=== PATIENT | male | born 1940 | race American Indian/Alaskan Native ===

== ENCOUNTER 2019-03-30 05:57 | Observation (INO) | payer OTHER ==
--- NOTE | 2019-03-26 10:54 | Anesthesia Consultation ---
Anesthesia Consult and Med Hx Date of service: 03/30/19 - Airway Anesthetic Teeth Evaluation: Good ROM Head & Neck: Adequate Mental/Hyoid Distance: Adequate Mallampati Class: Class III Intubation Access Assessment: Possibly Difficult - Pulmonary Exam CTA: Yes - Cardiac Exam Cardiac Exam: RRR - Pre-Operative Health Status ASA Pre-Surgery Classification: ASA3 Proposed Anesthetic Plan: General - Pulmonary Hx Smoking: No Hx Respiratory Symptoms: No Hx Sleep Apnea: No (JUAN JOSE PRE SCREEN HIGH RISK) - Cardiovascular System Hx Hypertension: Yes Hx Heart Attack/AMI: No (EF 35-40% on most recent TTE) Hx Percutaneous Transluminal Coronary Angioplasty (PTCA): No Hx Cardia Arrhythmia: Yes (afib, complete heart block) Hx Pacemaker: Yes - Central Nervous System CVA: No - Gastrointestinal Hx Gastroesophageal Reflux Disease: No - Endocrine Hx Renal Disease: No Hx Liver Disease: No Hx Insulin Dependent Diabetes: No Hx Non-Insulin Dependent Diabetes: No Hx Thyroid Disease: No - Hematic Hx Anemia: Yes - Other Systems Hx Obesity: No - Additional Comments Anesthesia Medical History Comments: No hx anesthetic complications. Cardiac clearance on chart. Per figure model, OK to hold xarelto 4-7 days preop.
[2019-03-26 11:03] LABS: Basophils % (Auto) 0.3 % (0.0-1.8); Eosinophils # (Auto) 0.1 K/mm3 (0.0-0.4); Hematocrit 29.6 % (35.5-45.6); Hemoglobin 9.5 gm/dl (11.8-15.2); Lymphocytes # (Auto) 2.1 K/mm3 (1.2-5.4); Lymphocytes % (Auto) 48.4 % (13.4-35.0); Mean Corpuscular HGB Conc 32 % (32-34); Mean Corpuscular Volume 73 fl (84-94); Monocytes # (Auto) 0.4 K/mm3 (0.0-0.8); Monocytes % (Auto) 8.4 % (0.0-7.3); Platelet Count 307 K/mm3 (140-440); Red Blood Count 4.06 M/mm3 (3.65-5.03); Red Cell Distribution Width 19.7 % (13.2-15.2)
[2019-03-26 11:14] LABS: Alanine Aminotransferase 36 units/L (7-56); Albumin 4.1 g/dL (3.9-5); BUN/Creatinine Ratio 16; Blood Urea Nitrogen 13 mg/dL (9-20); Calcium 11.3 mg/dL (8.4-10.2); Hemolysis Index 1
[~2019-03-30 05:57] MED LIST: ceFAZolin/STERILE WATER 2 GM/20 ML SYRINGE IV NR
[2019-03-30] MEDS ORDERED: ACETAMINOPHEN 325 MG TAB PO NR (07:09)
[2019-03-30] MEDS ORDERED: fentaNYL 100 MCG/2 ML INJ IV PRN (07:09)
[2019-03-30] MEDS ORDERED: ONDANSETRON 4 MG/2 ML INJ IV PRN ×2 (07:09→09:38)
--- NOTE | 2019-03-30 07:10 | Anesthesia Day of Surgery ---
Anesthesia Day of Surgery - Day of Surgery Patient Examined: Yes Patient H&P Reviewed: Yes Patient is NPO: Yes Beta Blockers: Yes
[2019-03-30 07:12] LABS: INR 1.01 (0.87-1.13); Partial Thromboplastin Time 34.9 Sec. (24.2-36.6)
[2019-03-30] MEDS ORDERED: LIDOCAINE MPF (2%) 20 MG/1 ML VIAL 5 ML ONE (07:25)
[2019-03-30] MEDS ORDERED: PROPOFOL 200 MG/20 ML VIAL IV ONE (07:25)
[2019-03-30] MEDS ORDERED: fentaNYL 100 MCG/2 ML INJ ONE (07:25)
[2019-03-30] MEDS: LACTATED RINGERS 1,000 ML IV SCH ×3 (07:30→22:15)
[2019-03-30] MEDS ORDERED: WATER FOR IRRIG STERILE 2000 ML IR ONE (07:50)
[2019-03-30] MEDS ORDERED: SODIUM CHLORIDE 0.9% IRRIG SOLN 3000 ML IR ONE (07:52)
[2019-03-30] MEDS ORDERED: WATER FOR IRRIG STERILE 1,500 ML BOTTLE IR ONE (07:53)
[2019-03-30] MEDS ORDERED: ETOMIDATE 20 MG/10 ML INJ IV ONE (09:16)
[2019-03-30] MEDS ORDERED: ONDANSETRON 4 MG/2 ML INJ ONE (09:17)
[2019-03-30] MEDS ORDERED: LACTATED RINGERS 1,000 ML ONE (09:31)
[2019-03-30] MEDS ORDERED: SODIUM CHLORIDE IRRI 1000 ML 1,000 ML IR ONE ×3 (09:37→17:38)
[2019-03-30] MEDS ORDERED: MORPHINE 2 MG/1 ML INJ IV PRN (09:38)
[2019-03-30] MEDS ORDERED: ZOLPIDEM 5 MG TAB PO PRN (09:38)
[2019-03-30] MEDS ORDERED: NALOXONE 0.4 MG/1 ML INJ IV PRN (09:38)
--- NOTE | 2019-03-30 09:38 | Short Stay Summary ---
Short Stay Documentation Date of service: 03/30/19 - History H&P: obtained from office - Allergies and Medications Current Medications: Allergies No Known Allergies Allergy (Verified 03/24/19 14:19) Home Medications Medication Instructions Recorded Confirmed Last Taken Type AtorvaSTATin [Lipitor] 40 mg PO QHS 03/24/19 03/24/19 03/29/19 19:00 History Ferrous Sulfate [Iron 325 MG] 325 mg PO DAILY 03/24/19 03/24/19 03/29/19 19:00 History Losartan [Cozaar] 50 mg PO QDAY 03/24/19 03/30/19 03/30/19 04:00 History NIFEdipine [Nifedipine ER] 30 mg PO DAILY 03/24/19 03/30/19 03/30/19 04:00 History Rivaroxaban [Xarelto] 10 mg PO QDAY 03/24/19 03/30/19 03/23/19 10:00 History Tamsulosin [Flomax] 0.4 mg PO QDAY 03/24/19 03/24/19 03/29/19 19:00 History carvediloL [Coreg] 6.25 mg PO BID 03/24/19 03/30/19 03/30/19 04:00 History hydroCHLOROthiazide [Hctz] 12.5 mg PO QDAY 03/24/19 03/24/19 03/29/19 19:00 History metFORMIN [Glucophage] 850 mg PO BID 03/24/19 03/24/19 03/29/19 19:00 History Active Medications Acetaminophen (Tylenol) 650 mg PO ONCE NR Stop: 03/30/19 13:00 Last Admin: 03/30/19 07:20 Dose: 650 mg Documented by: Cefazolin Sodium (Ancef/Sterile Water 2 Gm/20 Ml) 2 gm IV PREOP NR Stop: 03/30/19 23:59 Fentanyl (Sublimaze) 50 mcg IV Q5MIN PRN PRN Reason: Pain , Severe (7-10) Stop: 03/30/19 20:00 Lactated Ringer's (Lactated Ringers) 1,000 mls @ 100 mls/hr IV DIRECT AKIRA Last Admin: 03/30/19 07:30 Dose: 100 mls/hr Documented by: Ondansetron HCl (Zofran) 4 mg IV ONCE PRN PRN Reason: Nausea And Vomiting Stop: 03/30/19 13:00 - Brief post op/procedure progress note Date of procedure: 03/30/19 Pre-op diagnosis: retention, bph Post-op diagnosis: same Procedure: cysto, TURP, spt Anesthesia: TROYA Surgeon: SANDI NGUYEN Estimated blood loss: 50-100ml Pathology: list (prostate chips) Specimen disposition: to lab Condition: stable - Hospital course Hospital course: brady & timothy on chart temp this am----trending down CXR no actue findnigs verdugo pink tinged home with verdugo & spt clamped - Disposition Condition at discharge: Stable Short Stay Discharge Plan Follow up with: TRIXIE CHEEMA MD [Primary Care Provider] - 7 Days
--- NOTE | 2019-03-30 09:48 | Fluoroscopy Report ---
3 fluoroscopic images submitted Indication: Intraoperative localization Impression: 3 images of the abdomen were submitted for documentation purposes with radiology involve ment. Left-sided retrograde pyelogram was performed using 12 mL of Omnipaque 300. Please refer to th e operative note for complete details. Fluoroscopic time: 13 seconds Signer Name: Miah Santiago MD Signed: 03/30/2019 9:44 AM Workstation Name: [id number]
[2019-03-30] MEDS ORDERED: NON-FORMULARY EACH (Nifedipine [Nifedipine Er] 30 MG) PO SCH (10:00)
[2019-03-30] MEDS ORDERED: SODIUM CHLORIDE 0.9% 1000 ML 1,000 ML IV SCH (10:00)
--- NOTE | 2019-03-30 10:22 | Operative Report ---
PREOPERATIVE DIAGNOSIS: Urinary retention. POSTOPERATIVE DIAGNOSIS: Urinary retention. PROCEDURE: Cystoscopy, left retrograde pyelogram, transurethral resection of the prostate, suprapubic catheter placement. SURGEON: Flako Kaminski MD ANESTHESIA: General. ESTIMATED BLOOD LOSS: Minimal. FLUIDS: Crystalloid. COMPLICATIONS: No complications. INDICATIONS: This patient is a 78-year-old gentleman who was referred from the Emergency Room. The patient went into urinary retention and a Delacruz catheter placed in November. He was seen in the office for evaluation. Urodynamic testing was consistent with muscle weakness and obstruction. Bladder capacity 380 mL; however, he was unable to void. Delacruz catheter was replaced. We discussed options with the patient and his daughter regarding continuing Delacruz catheter, changing it regularly, clean intermittent catheterization versus TURP. We reviewed options and they agreed to proceed with surgical intervention. DESCRIPTION OF PROCEDURE: The patient was taken to the operative suite, placed in a supine position. After adequate general anesthesia, placed in dorsal lithotomy position, prepped and draped in a sterile fashion. Pancystourethroscopy was performed with a 22-Spanish Storz cystoscope, no urethral abnormalities. The patient's prostate revealed significant trilobar obstruction with a large median lobe. Bladder, no tumors or stones. Left ureteral orifice could be appreciated. The right could not due to enlarged median lobe and trabeculation. Left retrograde pyelogram was obtained with an 8-Spanish Addison catheter and 8 mL of contrast. No filling defects or obstruction; however, he had significant J hooking of the distal ureter. Next, using a 24-Spanish resectoscope with a standard settings of 200 cut and 120 coag, transurethral resection of the prostate was performed in a systematic fashion, taken down the median lobe and the right and left lateral lobes respectively. The chips were evacuated out with the Apsmart evacuator prior to performing the TURP, using a curved [place] a small incision was made in the suprapubic area, 1 cm cephalad to the pubic symphysis, an 18-Spanish [place] tip catheter was used. A 2-0 silk was attached to the [place], the catheter was pulled from the suprapubic area to the tip of the meatus, stitch was cut, catheter was followed back into the bladder and 10 mL of sterile water placed in the balloon, could be visualized without difficulties. A 2-0 silk was used to secure it at the skin area and it will be clamped as a backup. We completed the TURP, chips were evacuated out with the Apsmart evacuator. Adequate hemostasis achieved. A 22-Spanish 3-way catheter was placed to a Raygoza's drip, irrigated clear, 30 mL was placed in the balloon. Rectal exam was benign. He was extubated and taken to recovery room. He will be observed overnight and go home on Bactrim and Tyro. He was cleared from a cardiac standpoint from Dr. Aguilar Allen. JOB# [id number] [facility]/NTS
[2019-03-30] MEDS ORDERED: SODIUM CHLORIDE IRRI 2000 ML 4,000 ML ONE (10:47)
[2019-03-30] MEDS: FERROUS SULFATE 325 MG TAB PO SCH (12:02)
[2019-03-30] MEDS: hydroCHLOROthiazide 12.5 MG CAP PO SCH (12:02)
[2019-03-30] MEDS: carvediloL 6.25 MG TAB PO SCH ×2 (12:52→22:07)
[2019-03-30] MEDS: LOSARTAN 50 MG TAB PO SCH (12:53)
[2019-03-30] MEDS: NIFEdipine XL 30 MG TAB PO SCH (13:01)
[2019-03-30] MEDS: HYDROcodone/ACETAMINOPHEN 5-325 MG TAB PO PRN ×2 (16:13→22:06)
[2019-03-30] MEDS: metFORMIN 850 MG TAB PO SCH (17:05)
--- NOTE | 2019-03-30 18:08 | Post Anesthesia Evaluation ---
- Post Anesthesia Evaluation Patient Participated: Yes Airway Patent: Yes Stable Respiratory Function: Yes Nausea/Vomiting: No Temp > 96.8F: Yes Pain Manageable: Yes Adequeate Hydration: Yes Anesthesia Complications: No Block Receding Appropriately: Not Applicable Patient on Ventilator: No
[2019-03-30] MEDS: SODIUM CHLORIDE 0.9% IRRIG SOLN 2000 ML IR SCH ×2 (22:18→22:19)
[2019-03-31] MEDS: SODIUM CHLORIDE 0.9% IRRIG SOLN 2000 ML IR SCH ×11 (00:46→14:58)
--- NOTE | 2019-03-31 01:02 | Consultation ---
History of Present Illness - Reason for Consult Consult date: 03/30/19 Medical management Requesting physician: SANDI NGUYEN - History of Present Illness S/p cysto, TURP, spt Post op doing well. No SOB,CP. Past History Past Medical History: anemia, diabetes, hypertension, hyperlipidemia, other (BPH,Anticoagulation,Anemia) Past Surgical History: TURP Social history: lives with family, full code Family history: hypertension Medications and Allergies Allergies Allergy/AdvReac Type Severity Reaction Status Date / Time No Known Allergies Allergy Verified 03/24/19 14:19 Home Medications Medication Instructions Recorded Confirmed Last Taken Type AtorvaSTATin [Lipitor] 40 mg PO QHS 03/24/19 03/24/19 03/29/19 19:00 History Ferrous Sulfate [Iron 325 MG] 325 mg PO DAILY 03/24/19 03/24/19 03/29/19 19:00 History Losartan [Cozaar] 50 mg PO QDAY 03/24/19 03/30/19 03/30/19 04:00 History NIFEdipine [Nifedipine ER] 30 mg PO DAILY 03/24/19 03/30/19 03/30/19 04:00 History Rivaroxaban [Xarelto] 10 mg PO QDAY 03/24/19 03/30/19 03/23/19 10:00 History Tamsulosin [Flomax] 0.4 mg PO QDAY 03/24/19 03/24/19 03/29/19 19:00 History carvediloL [Coreg] 6.25 mg PO BID 03/24/19 03/30/19 03/30/19 04:00 History hydroCHLOROthiazide [Hctz] 12.5 mg PO QDAY 03/24/19 03/24/19 03/29/19 19:00 History metFORMIN [Glucophage] 850 mg PO BID 03/24/19 03/24/19 03/29/19 19:00 History Active Meds: Active Medications Acetaminophen/Hydrocodone Bitart ([place] 5/325) 2 each PO Q4H PRN PRN Reason: Pain, Moderate (4-6) Last Admin: 03/30/19 22:06 Dose: 2 each Documented by: Atorvastatin Calcium (Lipitor) 40 mg PO QHS [facility] Last Admin: 03/30/19 22:07 Dose: 40 mg Documented by: Carvedilol (Coreg) 6.25 mg PO BID [facility] Last Admin: 03/30/19 22:07 Dose: 6.25 mg Documented by: Ferrous Sulfate (Feosol) 325 mg PO DAILY [facility] Last Admin: 03/30/19 12:02 Dose: 325 mg Documented by: Hydrochlorothiazide (Hctz) 12.5 mg PO QDAY [facility] Last Admin: 03/30/19 12:02 Dose: 12.5 mg Documented by: Lactated Ringer's (Lactated Ringers) 1,000 mls @ 100 mls/hr IV DIRECT AKIRA Last Admin: 03/30/19 22:15 Dose: 100 mls/hr Documented by: Sodium Chloride (Nacl 0.9% 1000 Ml) 1,000 mls @ 100 mls/hr IV DIRECT AKIRA Levofloxacin/Dextrose (Levaquin 250mg/50ml) 250 mg in 50 mls @ 50 mls/hr IV Q24HR [facility]; Protocol Last Admin: 03/30/19 13:45 Dose: 50 mls/hr Documented by: Losartan Potassium (Cozaar) 50 mg PO QDAY [facility] Last Admin: 03/30/19 12:53 Dose: Not Given Documented by: Metformin HCl (Glucophage) 850 mg PO BIDDIAB [facility] Last Admin: 03/30/19 17:05 Dose: 850 mg Documented by: Morphine Sulfate (Morphine) 2 mg IV Q4H PRN PRN Reason: Pain, Moderate (4-6) Naloxone HCl (Naloxone) 0.1 mg IV Q2MIN PRN PRN Reason: Res Rate </= 8 or 02 SAT < 92% Nifedipine (Procardia Xl) 30 mg PO QDAY [facility] Last Admin: 03/30/19 13:01 Dose: Not Given Documented by: Ondansetron HCl (Zofran) 4 mg IV Q8H PRN PRN Reason: Nausea And Vomiting Last Admin: 03/30/19 22:07 Dose: 4 mg Documented by: Sodium Chloride (Nacl 0.9%) 2,000 ml IR DIRECT [facility] Last Admin: 03/31/19 00:46 Dose: 2,000 ml Documented by: Zolpidem Tartrate (Ambien) 5 mg PO QHS PRN PRN Reason: Sleep Review of Systems All systems: negative Exam - Constitutional Vitals: Temp Pulse Resp BP Pulse Ox 101.0 F H 104 H 19 102/54 96 03/30/19 23:39 11/18/19 23:39 03/30/19 23:39 03/30/19 23:39 03/30/19 23:39 General appearance: Present: no acute distress, well-nourished - EENT Eyes: Present: PERRL ENT: hearing intact, clear oral mucosa - Neck Neck: Present: supple, normal ROM - Respiratory Respiratory effort: normal Respiratory: bilateral: CTA - Cardiovascular Heart rate: 78 Rhythm: regular Heart Sounds: Present: S1 & S2. Absent: rub, click - Extremities Extremities: no ischemia, pulses intact, pulses symmetrical, No edema Peripheral Pulses: within normal limits - Abdominal General gastrointestinal: Present: soft, non-tender, non-distended, normal bowel sounds Male genitourinary: Present: normal - Integumentary Integumentary: Present: clear, warm, dry - Musculoskeletal Musculoskeletal: gait normal, strength equal bilaterally - Psychiatric Psychiatric: appropriate mood/affect, intact judgment & insight - Neurologic Neurologic: CNII-XII intact, moves all extremities - Allied Health Allied health notes reviewed: nursing, case management Results - Labs CBC & Chem 7: 03/26/19 10:15 03/26/19 10:15 Labs: Abnormal lab results 03/30/19 03/30/19 Range/Units 07:05 10:00 POC Glucose 123 H 182 H (70-105) Assessment and Plan - Patient Problems (1) S/P TURP (status post transurethral resection of prostate) Current Visit: Yes Status: Acute Plan to address problem: Post op doing well (2) HTN (hypertension) Current Visit: Yes Status: Chronic Qualifiers: Hypertension type: essential hypertension Qualified Code(s): I10 - Essential (primary) hypertension Plan to address problem: Cont antihypertensives (3) T2DM (type 2 diabetes mellitus) Current Visit: Yes Status: Chronic Qualifiers: Diabetes mellitus intermediate manager insulin use: without intermediate use Plan to address problem: Cont M etformin and coverage (4) HLD (hyperlipidemia) Current Visit: Yes Status: Chronic Qualifiers: Hyperlipidemia type: mixed hyperlipidemia Qualified Code(s): E78.2 - Mixed hyperlipidemia Plan to address problem: Cont Statins (5) Anemia Current Visit: Yes Status: Chronic Qualifiers: Anemia type: iron deficiency Iron deficiency anemia type: inadequate dietary iron intake Qualified Code(s): D50.8 - Other iron deficiency anemias Plan to address problem: Cont Ferrous sulfate (6) BPH (benign prostatic hyperplasia) Current Visit: Yes Status: Chronic Qualifiers: Lower urinary tract symptom presence: symptoms present Plan to address problem: Had Turp.No need for Flomax (7) DVT prophylaxis Current Visit: Yes Status: Acute Plan to address problem: On SCD's
[2019-03-31 06:58] LABS: BUN/Creatinine Ratio 10; Blood Urea Nitrogen 10 mg/dL (9-20); Calcium 8.8 mg/dL (8.4-10.2); Hemolysis Index 34
[2019-03-31 07:31] LABS: Hemoglobin 8.2 gm/dl (11.8-15.2); Mean Corpuscular HGB Conc 32 % (32-34); Mean Corpuscular Volume 72 fl (84-94); Platelet Count 248 K/mm3 (140-440); Red Cell Distribution Width 19.7 % (13.2-15.2)
[2019-03-31] MEDS: INSULIN LISPRO 100 UNIT/ML SUB-Q SCH ×3 (08:57→17:40)
[2019-03-31] MEDS: FERROUS SULFATE 325 MG TAB PO SCH (08:59)
[2019-03-31] MEDS: metFORMIN 850 MG TAB PO SCH ×2 (08:59→17:39)
[2019-03-31] MEDS: carvediloL 6.25 MG TAB PO SCH ×2 (08:59→21:39)
[2019-03-31] MEDS: LOSARTAN 50 MG TAB PO SCH (11:20)
[2019-03-31] MEDS: hydroCHLOROthiazide 12.5 MG CAP PO SCH (11:21)
[2019-03-31] MEDS: NIFEdipine XL 30 MG TAB PO SCH (11:21)
--- NOTE | 2019-03-31 13:15 | XRay Report ---
CHEST 1 VIEW 03/31/2019 11:31 AM INDICATION / CLINICAL INFORMATION: temp high. COMPARISON: None available. FINDINGS: SUPPORT DEVICES: Pacemaker in place with leads injecting in appropriate position. HEART / MEDIASTINUM: No significant abnormality. LUNGS / PLEURA: No significant pulmonary or pleural abnormality. No pneumothorax. ADDITIONAL FINDINGS: No significant additional findings. IMPRESSION: 1. No acute findings. Signer Name: Boris Rubio MD Signed: 03/31/2019 1:11 PM Workstation Name: [id number]
--- NOTE | 2019-03-31 17:26 | Progress Note ---
Assessment and Plan - Patient Problems (1) S/P TURP (status post transurethral resection of prostate) Current Visit: Yes Status: Acute Plan to address problem: Post op doing well (2) HTN (hypertension) Current Visit: Yes Status: Chronic Qualifiers: Hypertension type: essential hypertension Qualified Code(s): I10 - Essential (primary) hypertension Plan to address problem: Cont antihypertensives (3) T2DM (type 2 diabetes mellitus) Current Visit: Yes Status: Chronic Qualifiers: Diabetes mellitus intermission coordinator insulin use: without intermission coordinator use Plan to address problem: Cont M etformin and coverage (4) HLD (hyperlipidemia) Current Visit: Yes Status: Chronic Qualifiers: Hyperlipidemia type: mixed hyperlipidemia Qualified Code(s): E78.2 - Mixed hyperlipidemia Plan to address problem: Cont Statins (5) Anemia Current Visit: Yes Status: Chronic Qualifiers: Anemia type: iron deficiency Iron deficiency anemia type: inadequate dietary iron intake Qualified Code(s): D50.8 - Other iron deficiency anemias Plan to address problem: Cont Ferrous sulfate (6) BPH (benign prostatic hyperplasia) Current Visit: Yes Status: Chronic Qualifiers: Lower urinary tract symptom presence: symptoms present Plan to address problem: Had Turp.No need for Flomax (7) DVT prophylaxis Current Visit: Yes Status: Acute Plan to address problem: On SCD's Subjective Date of service: 03/31/19 Principal diagnosis: S/p TURP Interval history: low grade fever today Otherwise doing well Objective - Constitutional Vitals: Vital Signs - 12hr 03/31/19 03/31/19 03/31/19 07:01 07:22 07:44 Temperature 101.1 F H 97.7 F 97.7 F Pulse Rate 99 H Respiratory 20 20 Rate Blood Pressure 110/56 Blood Pressure 110/56 [Left] O2 Sat by Pulse 97 97 Oximetry 03/31/19 03/31/19 03/31/19 11:00 12:01 15:08 Temperature 100.6 F H 99.3 F 99.6 F Pulse Rate 96 H 93 H 98 H Respiratory 20 19 20 Rate Blood Pressure 99/55 102/55 101/52 Blood Pressure [Left] O2 Sat by Pulse 98 97 100 Oximetry 03/31/19 16:00 Temperature 99.2 F Pulse Rate 98 H Respiratory 18 Rate Blood Pressure Blood Pressure 101/52 [Left] O2 Sat by Pulse 100 Oximetry General appearance: Present: no acute distress, well-nourished - EENT Eyes: PERRL, EOM intact ENT: hearing intact, clear oral mucosa Ears: bilateral: normal - Neck Neck: supple, normal ROM - Respiratory Respiratory effort: normal Respiratory: bilateral: CTA - Breasts Breasts: normal - Cardiovascular Heart rate: 78 Rhythm: regular Heart Sounds: Present: S1 & S2. Absent: gallop, rub Extremities: no ischemia, pulses intact, No edema, normal color, Full ROM - Gastrointestinal General gastrointestinal: Present: soft, non-tender, non-distended, normal bowel sounds - Genitourinary Male genitourinary: normal - Integumentary Integumentary: clear, warm, dry - Musculoskeletal Musculoskeletal: 1, strength equal bilaterally - Neurologic Neurologic: moves all extremities - Psychiatric Psychiatric: memory intact, appropriate mood/affect, intact judgment & insight - Labs CBC & Chem 7: 03/31/19 07:12 03/31/19 05:53 Labs: Abnormal lab results 03/31/19 03/31/19 03/31/19 Range/Units 05:53 07:12 11:55 RBC 3.60 L (3.65-5.03) M/mm3 Hgb 8.2 L (11.8-15.2) gm/dl Hct 26.0 L (35.5-45.6) % MCV 72 L (84-94) fl MCH 23 L (28-32) pg RDW 19.7 H (13.2-15.2) % Sodium 135 L (137-145) mmol/L Chloride 95.5 L (98-107) mmol/L Glucose 159 H (75-100) mg/dL POC Glucose 243 H (70-105) 03/31/19 Range/Units 16:29 RBC (3.65-5.03) M/mm3 Hgb (11.8-15.2) gm/dl Hct (35.5-45.6) % MCV (84-94) fl MCH (28-32) pg RDW (13.2-15.2) % Sodium (137-145) mmol/L Chloride (98-107) mmol/L Glucose (75-100) mg/dL POC Glucose 207 H (70-105)
[2019-03-31] MEDS: HYDROcodone/ACETAMINOPHEN 5-325 MG TAB PO PRN (17:39)
[2019-03-31 20:01] VITALS: BP 102/45
== END 2019-03-31 23:08 | disposition home or self-care (01) ==
LOC: OR 05:57 → 3B-SURG 09:38
PROVIDERS: ADMIT Urology; ATTEND Urology
DX: N40.1 Benign prostatic hyperplasia with lower urinary tract symptoms (principal); R33.9 Retention of urine, unspecified; D64.9 Anemia, unspecified; E11.9 Type 2 diabetes mellitus without complications; I10 Essential (primary) hypertension; E78.5 Hyperlipidemia, unspecified; Z79.899 Other long term (current) drug therapy; Z79.84 Long term (current) use of oral hypoglycemic drugs
CPT/HCPCS: 36415; 52005; 52601; 71045; 74420; 80048; 80053; 82962; 85025; 85610; 85730; 86850; 86900; 86901; 88305; 96365; 96366; 96372; 96375; A4217; A9270; C1758; G0378; J0690; J1956; J2405; J2704; J3010; J7030; J7120; Q9967; 88342; J1815

== ENCOUNTER 2019-04-05 12:36 | Inpatient (IN) | payer OTHER ==
--- NOTE | 2019-04-05 12:47 | Event Note ---
ED Screening Note ED Screening Note: TURP on Saturday by Dr. Kaminski suprapubic catheter removed two days ago hematuria, abd distension, abd pain pt is on xarelto This initial assessment/diagnostic orders/clinical plan/treatment(s) is/are subject to change based on patients health status, clinical progression and re- assessment by fellow clinical providers in the ED. Further treatment and workup at subsequent clinical providers discretion. Patient/guardian urged not to elope from the ED as their condition may be serious if not clinically assessed and managed. Initial orders include: labs, CT abd, UA
[2019-04-05] MEDS ORDERED: MORPHINE 4 MG/1 ML INJ IV ONE (13:06)
[2019-04-05 14:31] LABS: Eosinophils # (Auto) 0.1 K/mm3 (0.0-0.4); Eosinophils % (Auto) 1.3 % (0.0-4.3); Monocytes # (Auto) 0.3 K/mm3 (0.0-0.8); Monocytes % (Auto) 6.3 % (0.0-7.3)
[2019-04-05 14:33] LABS: INR 0.95 (0.87-1.13)
[2019-04-05 14:34] LABS: Partial Thromboplastin Time 32.1 Sec. (24.2-36.6)
[2019-04-05 14:35] LABS: Alanine Aminotransferase 9 units/L (7-56); Albumin 3.4 g/dL (3.9-5); BUN/Creatinine Ratio 20; Blood Urea Nitrogen 18 mg/dL (9-20); Calcium 8.8 mg/dL (8.4-10.2); Hemolysis Index 0
[2019-04-05 14:43] LABS: Hemoglobin 6.3 gm/dl (11.8-15.2); Mean Corpuscular HGB Conc 33 % (32-34); Mean Corpuscular Volume 72 fl (84-94); Platelet Count 225 K/mm3 (140-440); Red Blood Count 2.65 M/mm3 (3.65-5.03)
[2019-04-05 14:47] LABS: Basophils % (Auto) 0.5 % (0.0-1.8); Lymphocytes # (Auto) 1.2 K/mm3 (1.2-5.4); Lymphocytes % (Auto) 22.2 % (13.4-35.0)
[2019-04-05 14:48] LABS: Hematocrit 19.1 % (35.5-45.6); Red Cell Distribution Width 20.1 % (13.2-15.2)
[2019-04-05] MEDS ORDERED: SODIUM CHLORIDE 0.9% 500 ML 500 ML IV ONE (14:55)
[2019-04-05] MEDS ORDERED: SODIUM CHLORIDE 0.9% 1000 ML 1,000 ML IV ONE (14:56)
--- NOTE | 2019-04-05 15:53 | Cat Scan Report ---
CT ABDOMEN AND PELVIS WITH CONTRAST INDICATION / CLINICAL INFORMATION: hematuria,abd pain/distension recent TURP/catheter. TECHNIQUE: Axial CT images were obtained through the abdomen and pelvis after 100 mL Omnipaque [address] scans at this location are performed using CT dose reduction for ALARA by means of automated exposure control. COMPARISON: None available. FINDINGS: LOWER CHEST: Peripheral bronchiectasis of the lower lobes posteriorly. LIVER: Simple cyst in the right lobe. No other focal hepatic lesion. BILIARY SYSTEM: No significant abnormality. PANCREAS: No significant abnormality. SPLEEN: No significant abnormality. ADRENALS: No significant abnormality. KIDNEYS and URETERS: Renal cortices enhance normally. There is a simple cyst in the interpolar region of the left kidney. Moderate, symmetric dilatation of the renal calyces and the entire length of the ureters on both sides. STOMACH / BOWEL: No significant abnormality. PERITONEUM: No free fluid. No free air. No fluid collection. LYMPH NODES: There are several prominent left iliac chain nodes, largest measuring 1.2 cm in short ax is dimension on series 2 image 121. There are also prominent aortocaval nodes, such as 0.8 cm node on image 89 and 1 cm node on image 82 adjacent to the posterior margin of the bladder. VASCULAR STRUCTURES: No significant abnormality. URINARY BLADDER: The bladder is markedly distended. It contains a few foci of antidependent gas, like ly related to recent catheterization. Suprapubic catheter is noted, with the tip of the catheter comp letely enveloped in hyperattenuating material that likely represents a large blood clot, greater than 9 cm in diameter in the transverse plane. REPRODUCTIVE ORGANS: In the prostate, there is heterogeneous, mixed attenuation material with a hypod ense channel that appears to communicate with the bladder, consistent with surgical defect. ADDITIONAL FINDINGS: None. SKELETAL SYSTEM: Extensive sclerosis in the supra-acetabular left ilium, throughout the lumbar verteb ral bodies, and it scattered foci in the ribs bilaterally are consistent with involvement by blastic metastases. No pathologic fracture. IMPRESSION: 1. A large blood clot in the markedly distended urinary bladder has obstructed both ureterovesical ju nctions, resulting in moderate, symmetric hydroureteronephrosis. At this time, there is no significan t perinephric stranding, and the renal cortices enhance normally. The balloon and tip of the suprapub ic catheter are in developed in clot. 2. Appearance of the prostate is consistent with the presence large surgical defect that appears to c ommunicate with the bladder. 3. 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 Signer Name: Israel Power MD Signed: 04/05/2019 3:49 PM Workstation Name: [id number]
--- NOTE | 2019-04-05 16:05 | Emergency Department Report ---
ED Male HPI - General Chief complaint: Urogenital-Male Stated complaint: GENERAL ILLNESS Time Seen by Provider: 04/05/19 12:51 Source: family Mode of arrival: Ambulatory Limitations: Language Barrier - History of Present Illness Initial comments: This is a 78-year-old male nontoxic, well nourished in appearance, no acute signs of distress presents to the ED with c/o of pelvic pain and dysuria with hematuria area. Patient stated he had a suprapubic catheter that was placed by Dr. Kaminski status post TURP procedure. Patient stated that symptoms of abdominal distention and pain has increased since yesterday with hematuria. Patient denies any nausea, vomiting, chest pain, shortness of breath, headache or stiff neck. Patient stated he also has increased weakness and lethargic. Patient denies any allergies. MD Complaint: dysuria, other (pelvic pain) -: days(s) Radiation: none Severity: moderate Severity scale (0 -10): 8 Consistency: constant Improves with: none Worsens with: none blood in urine, dysuria. denies: discharge, swelling, mass, rash, urinary retention, fever, nausea/vomiting, incontinence - Related Data Home Medications Medication Instructions Recorded Confirmed Last Taken AtorvaSTATin [Lipitor] 40 mg PO QHS 03/24/19 04/05/19 03/29/19 19:00 Ferrous Sulfate [Iron 325 MG] 325 mg PO DAILY 03/24/19 04/05/19 03/29/19 19:00 Losartan [Cozaar] 50 mg PO QDAY 03/24/19 04/05/19 03/30/19 04:00 NIFEdipine [Nifedipine ER] 30 mg PO DAILY 03/24/19 04/05/19 03/30/19 04:00 Rivaroxaban [Xarelto] 10 mg PO QDAY 03/24/19 04/05/19 03/23/19 10:00 Tamsulosin [Flomax] 0.4 mg PO QDAY 03/24/19 04/05/19 03/29/19 19:00 carvediloL [Coreg] 6.25 mg PO BID 03/24/19 04/05/19 03/30/19 04:00 hydroCHLOROthiazide [Hctz] 12.5 mg PO QDAY 03/24/19 04/05/19 03/29/19 19:00 metFORMIN [Glucophage] 850 mg PO BID 03/24/19 04/05/19 03/29/19 19:00 Allergies Allergy/AdvReac Type Severity Reaction Status Date / Time No Known Allergies Allergy Verified 03/24/19 14:19 ED Review of Systems ROS: Stated complaint: GENERAL ILLNESS Other details as noted in HPI Constitutional: denies: chills, fever Eyes: denies: eye pain, eye discharge, vision change ENT: denies: ear pain, throat pain Respiratory: denies: cough, shortness of breath, wheezing Cardiovascular: denies: chest pain, palpitations Endocrine: no symptoms reported Gastrointestinal: other (pelvic pain). denies: abdominal pain, nausea, diarrhea Genitourinary: dysuria, hematuria. denies: urgency, frequency, discharge Musculoskeletal: denies: back pain, joint swelling, arthralgia Skin: denies: rash, lesions Neurological: denies: headache, weakness, paresthesias Psychiatric: denies: anxiety, depression Hematological/Lymphatic: denies: easy bleeding, easy bruising ED Past Medical Hx - Past Medical History Hx Hypertension: Yes Hx Heart Attack/AMI: No (EF 35-40% on most recent TTE) Hx Congestive Heart Failure: Yes (11/2018- RESOLVED) Hx Diabetes: Yes Hx Liver Disease: No Hx Renal Disease: No Hx HIV: No Additional medical history: AFIB - Surgical History Past Surgical History?: Yes Hx Pacemaker: Yes Additional Surgical History: TURP 03/2019 - Social History Smoking Status: Never Smoker Substance Use Type: None - Medications Home Medications: Home Medications Medication Instructions Recorded Confirmed Last Taken Type AtorvaSTATin [Lipitor] 40 mg PO QHS 03/24/19 04/05/19 03/29/19 19:00 History Ferrous Sulfate [Iron 325 MG] 325 mg PO DAILY 03/24/19 04/05/19 03/29/19 19:00 History Losartan [Cozaar] 50 mg PO QDAY 03/24/19 04/05/19 03/30/19 04:00 History NIFEdipine [Nifedipine ER] 30 mg PO DAILY 03/24/19 04/05/19 03/30/19 04:00 History Rivaroxaban [Xarelto] 10 mg PO QDAY 03/24/19 04/05/19 03/23/19 10:00 History Tamsulosin [Flomax] 0.4 mg PO QDAY 03/24/19 04/05/19 03/29/19 19:00 History carvediloL [Coreg] 6.25 mg PO BID 03/24/19 04/05/19 03/30/19 04:00 History hydroCHLOROthiazide [Hctz] 12.5 mg PO QDAY 03/24/19 04/05/19 03/29/19 19:00 History metFORMIN [Glucophage] 850 mg PO BID 03/24/19 04/05/19 03/29/19 19:00 History ED Physical Exam - General Limitations: Language Barrier General appearance: alert, in no apparent distress - Head Head exam: Present: atraumatic, normocephalic - Neck Neck exam: Present: normal inspection, full ROM - Respiratory Respiratory exam: Present: normal lung sounds bilaterally. Absent: respiratory distress, wheezes - Cardiovascular Cardiovascular Exam: Present: regular rate, normal rhythm - GI/Abdominal GI/Abdominal exam: Present: distended, tenderness, normal bowel sounds. Absent: guarding, rebound, rigid, diminished bowel sounds - Extremities Exam Extremities exam: Present: full ROM - Back Exam Back exam: Present: normal inspection, full ROM. Absent: tenderness, CVA tenderness (R), CVA tenderness (L), muscle spasm, paraspinal tenderness, vertebral tenderness - Neurological Exam Neurological exam: Present: alert, oriented X3, normal gait - Psychiatric Psychiatric exam: Present: normal affect, normal mood - Skin Skin exam: Present: warm, dry, intact, normal color. Absent: rash ED Course Vital Signs 04/05/19 04/05/19 04/05/19 12:42 13:09 14:25 Temperature 98.0 F Pulse Rate 98 H 85 84 Respiratory 16 16 16 Rate Blood Pressure 136/68 Blood Pressure 135/76 146/95 [Right] O2 Sat by Pulse 100 98 96 Oximetry - Reevaluation(s) Reevaluation #1: 04/05/19 16:06 Patient is speaking in full sentences with no signs of distress noted. - Consultations Consultation #1: 04/05/19 14:57 Patient has been consulted with Dr. Curiel (Urologist) about patient history, physical exam, and labs and agrees for admission. Consultation #2: 04/05/19 16:07 Patient has been consulted with Dr. Amirah V about patient history, physical exam, and labs/CT results and accepts patient to services for admission. ED Medical Decision Making - Lab Data Result diagrams: 04/05/19 13:55 04/05/19 13:55 - Medical Decision Making This is a 78-year-old male that presents with low hemoglobin/hematocrit and blood clot and distant urinary bladder that is obstructing resulting in moderate hydroureteronephrosis. Patient is stable and was examined by me. Patient was consulted with urologist and accepted with hospitalist for admission. At time of admission, the patient does not seem toxic or ill in appearance. No acute signs of distress noted. Patient agrees to admission treatment plan of care. No further questions noted by the patient. Critical care attestation.: If time is entered above; I have spent that time in minutes in the direct care of this critically ill patient, excluding procedure time. ED Disposition Clinical Impression: S/P TURP (status post transurethral resection of prostate), Hydrour eteronephrosis, Blood clot in bladder, Low hemoglobin and low hematocrit, Blood transfusion during current hospitalization Post-operative complication Qualifiers: Surgical complication system/body Area: genitourinary Surgical complication type: unspecified Procedure type: genitourinary Qualified Code(s): N99.89 - Other postprocedural complications and disorders of genitourinary system Disposition: DC-09 OP ADMIT IP TO THIS HOSP Is pt being admited?: Yes Condition: Stable
[2019-04-05] MEDS ORDERED: SODIUM CHLORIDE 0.9% 500 ML 500 ML ONE (17:21)
[2019-04-05 20:26] LABS: Bilirubin,Urine NEG (Negative); Blood,Urine LG (Negative); Color,Urine Red (Yellow); Urobilinogen,Urine < 2.0 mg/dL (<2.0)
[2019-04-05 20:49] LABS: RBC,Urine > 182.0 /HPF (0.0-6.0)
[2019-04-05 20:55] LABS: WBC,Urine < 1.0 /HPF (0.0-6.0)
[2019-04-05] MEDS ORDERED: ACETAMINOPHEN 325 MG TAB PO PRN (22:09)
[2019-04-05] MEDS ORDERED: ONDANSETRON 4 MG/2 ML INJ IV PRN (22:09)
[2019-04-05] MEDS ORDERED: oxyCODONE /ACETAMINOPHEN 5-325MG TAB PO PRN (22:09)
[2019-04-05] MEDS: SODIUM CHLORIDE 0.9% 1000 ML 1,000 ML IV SCH (23:04)
[2019-04-05] MEDS: HYDROmorphone 1 MG/1 ML INJ IV PRN (23:05)
[2019-04-05] MEDS: carvediloL 6.25 MG TAB PO SCH (23:15)
[2019-04-05] MEDS: FAMOTIDINE 20 MG/2 ML INJ IV SCH (23:15)
[2019-04-06 00:12] LABS: Hematocrit 26.6 % (35.5-45.6); Hemoglobin 8.7 gm/dl (11.8-15.2)
[2019-04-06 06:43] LABS: Basophils % (Auto) 0.4 % (0.0-1.8); Eosinophils # (Auto) 0.1 K/mm3 (0.0-0.4); Eosinophils % (Auto) 1.1 % (0.0-4.3); Hematocrit 24.2 % (35.5-45.6); Lymphocytes # (Auto) 1.9 K/mm3 (1.2-5.4); Lymphocytes % (Auto) 40.5 % (13.4-35.0); Mean Corpuscular HGB Conc 33 % (32-34); Mean Corpuscular Volume 79 fl (84-94); Monocytes # (Auto) 0.5 K/mm3 (0.0-0.8); Monocytes % (Auto) 10.7 % (0.0-7.3); Platelet Count 203 K/mm3 (140-440); Red Blood Count 3.08 M/mm3 (3.65-5.03)
[2019-04-06 06:45] LABS: Red Cell Distribution Width 23.2 % (13.2-15.2)
[2019-04-06 07:05] LABS: Alanine Aminotransferase 10 units/L (7-56); Albumin 3.2 g/dL (3.9-5); BUN/Creatinine Ratio 15; Blood Urea Nitrogen 12 mg/dL (9-20); Calcium 8.6 mg/dL (8.4-10.2); Hemolysis Index 0
--- NOTE | 2019-04-06 07:15 | Event Note ---
Date: 04/05/19 See H/p in reports Hematuria Blood loss anemia
--- NOTE | 2019-04-06 07:39 | History and Physical Report ---
CHIEF COMPLAINT: Blood in the urine from suprapubic catheter. HISTORY OF PRESENT ILLNESS: The patient had a recent TURP procedure and suprapubic catheter. The patient has been bleeding from the suprapubic catheter region. The patient has increased blood in the urine from yesterday. Also, has cramping pain in the low suprapubic area. No shortness of breath, no chest pain. No palpitations. No recent travel. No fever or chills. PAST MEDICAL HISTORY: Significant for hyperlipidemia, anemia, hypertension. The patient on anticoagulation with Xarelto, BPH and diabetes. PAST SURGICAL HISTORY: Significant for TURP recently. Pacemaker. SOCIAL HISTORY: Does not smoke. No alcohol, no recreational drugs. FAMILY HISTORY: Hypertension. CURRENT MEDICATIONS: On the chart. REVIEW OF SYSTEMS: Significant for severe hematuria from the suprapubic catheter. Otherwise, review of systems negative. PHYSICAL EXAMINATION: GENERAL: Elderly male, cooperative during examination. VITAL SIGNS: Blood pressure is 118/61, temperature is 97.4, pulse is 62, respirations are 16. HEENT: Unremarkable. Pupils equal and reactive. NECK: Supple, no lymphadenopathy, no thyromegaly. LUNGS: Clear to auscultation and percussion. Good air entry. CARDIOVASCULAR: S1, S2 heard. No gallop, no murmur, no rub. Apical impulse in left fifth intercostal space and midclavicular line. ABDOMEN: Suprapubic catheter in place. Hematuria severe. EXTREMITIES: Good pedal pulses. CENTRAL NERVOUS SYSTEM: Alert and oriented x 4, nonfocal exam. LABORATORY DATA: Significant for H and H of 6.3 and 19.1. Sodium of 135, glucose of 330. A1c of 7.1, albumin of 3.4. Urine did not have any white blood cells. Blood was large. Urine rbc's more than 182. ASSESSMENT AND PLAN: 1. Blood loss anemia. The patient to be transfused 2 units. 2. Severe hematuria from suprapubic catheter. Urology consulted. Urology also informed for consultation. 3. Hyperlipidemia. Continue atorvastatin. 4. Hypertension. Continue losartan and nifedipine. 5. Anticoagulation. We will hold the Xarelto. 6. Benign prostatic hypertrophy, status post transurethral resection of prostate, the patient does not need Flomax. 6. Diabetes. Continue metformin. 7. Deep venous thrombosis prophylaxis. No heparin or Xarelto at this point. 8. Gastrointestinal prophylaxis initiated. JOB# [id number] VSM/NTS MTDD
[2019-04-06] MEDS: INSULIN LISPRO 100 UNIT/ML SUB-Q SCH ×2 (07:52→23:03)
[2019-04-06] MEDS: metFORMIN 850 MG TAB PO SCH (07:57)
[2019-04-06] MEDS ORDERED: TAMSULOSIN 0.4 MG CAP PO SCH (10:00)
[2019-04-06] MEDS ORDERED: NON-FORMULARY EACH (Nifedipine [Nifedipine Er] 30 MG) PO SCH (10:00)
[2019-04-06] MEDS: FAMOTIDINE 20 MG/2 ML INJ IV SCH ×2 (10:32→22:42)
[2019-04-06 10:47] LABS: Hematocrit 24.7 % (35.5-45.6); Hemoglobin 8.1 gm/dl (11.8-15.2)
--- NOTE | 2019-04-06 11:51 | Progress Note ---
Assessment and Plan gross heme clots needs cysto today dictated Subjective Date of service: 04/06/19 Principal diagnosis: clots heme Objective - Constitutional Vitals: Vital Signs - 12hr 04/06/19 04/06/19 04/06/19 05:12 07:02 11:01 Temperature 97.8 F 98.0 F 98.3 F Pulse Rate 83 82 70 Respiratory 18 18 20 Rate Blood Pressure 145/72 143/76 148/75 O2 Sat by Pulse 98 99 99 Oximetry General appearance: Present: no acute distress - Neck Neck: supple - Respiratory Respiratory effort: normal Extremities: no ischemia - Gastrointestinal General gastrointestinal: Present: soft, non-tender - Labs CBC & Chem 7: 04/06/19 10:35 04/06/19 05:59 Labs: Abnormal lab results 04/05/19 04/05/19 04/05/19 Range/Units 13:55 13:55 15:20 RBC 2.65 L (3.65-5.03) M/mm3 Hgb 6.3 L (11.8-15.2) gm/dl Hct 19.1 L* (35.5-45.6) % MCV 72 L (84-94) fl MCH 24 L (28-32) pg RDW 20.1 H (13.2-15.2) % Lymph % (Auto) (13.4-35.0) % [place] % (Auto) (0.0-7.3) % Sodium 135 L (137-145) mmol/L Chloride 95.8 L (98-107) mmol/L Glucose 330 H (75-100) mg/dL POC Glucose (70-105) Hemoglobin A1c (4-6) % Albumin 3.4 L (3.9-5) g/dL Ur Specific [place] (1.003-1.030) Crossmatch See Detail 04/05/19 04/05/19 04/05/19 Range/Units 19:45 22:52 22:52 RBC (3.65-5.03) M/mm3 Hgb 8.7 L (11.8-15.2) gm/dl Hct 26.6 L D (35.5-45.6) % MCV (84-94) fl MCH (28-32) pg RDW (13.2-15.2) % Lymph % (Auto) (13.4-35.0) % [place] % (Auto) (0.0-7.3) % Sodium (137-145) mmol/L Chloride (98-107) mmol/L Glucose (75-100) mg/dL POC Glucose (70-105) Hemoglobin A1c 7.1 H (4-6) % Albumin (3.9-5) g/dL Ur Specific [place] 1.035 H (1.003-1.030) Crossmatch 04/06/19 04/06/19 04/06/19 Range/Units 05:59 05:59 07:13 RBC 3.08 L (3.65-5.03) M/mm3 Hgb 8.0 L (11.8-15.2) gm/dl Hct 24.2 L (35.5-45.6) % MCV 79 L (84-94) fl MCH 26 L (28-32) pg RDW 23.2 H (13.2-15.2) % Lymph % (Auto) 40.5 H (13.4-35.0) % [place] % (Auto) 10.7 H (0.0-7.3) % Sodium (137-145) mmol/L Chloride (98-107) mmol/L Glucose 230 H (75-100) mg/dL POC Glucose 221 H (70-105) Hemoglobin A1c (4-6) % Albumin 3.2 L (3.9-5) g/dL Ur Specific [place] (1.003-1.030) Crossmatch 04/06/19 04/06/19 Range/Units 10:35 11:43 RBC (3.65-5.03) M/mm3 Hgb 8.1 L (11.8-15.2) gm/dl Hct 24.7 L (35.5-45.6) % MCV (84-94) fl MCH (28-32) pg RDW (13.2-15.2) % Lymph % (Auto) (13.4-35.0) % [place] % (Auto) (0.0-7.3) % Sodium (137-145) mmol/L Chloride (98-107) mmol/L Glucose (75-100) mg/dL POC Glucose 201 H (70-105) Hemoglobin A1c (4-6) % Albumin (3.9-5) g/dL Ur Specific [place] (1.003-1.030) Crossmatch Medications & Allergies - Medications Allergies/Adverse Reactions: Allergies No Known Allergies Allergy (Verified 03/24/19 14:19) Home Medications: Home Medications Medication Instructions Recorded Confirmed Last Taken Type AtorvaSTATin [Lipitor] 40 mg PO QHS 03/24/19 04/05/19 03/29/19 19:00 History Ferrous Sulfate [Iron 325 MG] 325 mg PO DAILY 03/24/19 04/05/19 03/29/19 19:00 History Losartan [Cozaar] 50 mg PO QDAY 03/24/19 04/05/19 03/30/19 04:00 History NIFEdipine [Nifedipine ER] 30 mg PO DAILY 03/24/19 04/05/19 03/30/19 04:00 History Rivaroxaban [Xarelto] 10 mg PO QDAY 03/24/19 04/05/19 03/23/19 10:00 History Tamsulosin [Flomax] 0.4 mg PO QDAY 03/24/19 04/05/19 03/29/19 19:00 History carvediloL [Coreg] 6.25 mg PO BID 03/24/19 04/05/19 03/30/19 04:00 History hydroCHLOROthiazide [Hctz] 12.5 mg PO QDAY 03/24/19 04/05/19 03/29/19 19:00 History metFORMIN [Glucophage] 850 mg PO BID 03/24/19 04/05/19 03/29/19 19:00 History Active Medications: Generic Name Dose Route Start Last Admin Trade Name Freq PRN Reason Stop Dose Admin Acetaminophen 650 mg 04/05/19 22:09 Tylenol PO Q4H PRN Pain MILD(1-3)/Fever >100.5/TREJO Atorvastatin Calcium 40 mg 04/06/19 22:00 Lipitor PO QHS AKIRA Carvedilol 6.25 mg 04/05/19 23:00 04/05/19 23:15 Coreg PO 6.25 mg BID AKIRA Administration Famotidine 20 mg 04/05/19 23:00 04/06/19 10:32 Pepcid IV 20 mg BID AKIRA Administration Ferrous Sulfate 325 mg 04/06/19 10:00 Feosol PO DAILY AKIRA Hydrochlorothiazide 12.5 mg 04/06/19 10:00 Hctz PO QDAY AKIRA Hydromorphone HCl 0.5 mg 04/05/19 22:09 04/05/19 23:05 Dilaudid IV 0.5 mg Q3H PRN Administration Pain , Severe (7-10) Sodium Chloride 1,000 mls @ 75 mls/hr 04/05/19 23:00 04/05/19 23:04 Nacl 0.9% 1000 Ml IV 75 mls/hr DIRECT AKIRA Administration Insulin Human Lispro 0 unit 04/06/19 07:30 04/06/19 07:52 Humalog SUB-Q Not Given ACHS [facility] Protocol Losartan Potassium 50 mg 04/06/19 10:00 Cozaar PO QDAY [facility] Metformin HCl 850 mg 04/06/19 08:00 04/06/19 07:57 Glucophage PO Not Given BIDDIAB [facility] Nifedipine 30 mg 04/06/19 10:00 Procardia Xl PO QDAY [facility] Ondansetron HCl 4 mg 04/05/19 22:09 Zofran IV Q8H PRN Nausea And Vomiting Oxycodone/Acetaminophen 1 tab 04/05/19 22:09 Percocet 5/325 PO Q6H PRN Pain, Moderate (4-6) Sodium Chloride 10 ml 04/05/19 23:00 04/05/19 23:09 Sodium Chloride Flush Syringe 10 Ml IV 10 ml BID AKIRA Administration Sodium Chloride 10 ml 04/05/19 22:09 Sodium Chloride Flush Syringe 10 Ml IV PRN PRN LINE FLUSH
[2019-04-06] MEDS ORDERED: SODIUM CHLORIDE 0.9% 500 ML 500 ML IV NR ×3 (11:52→19:14)
--- NOTE | 2019-04-06 12:03 | Anesthesia Day of Surgery ---
Anesthesia Day of Surgery - Day of Surgery Patient Examined: Yes Patient H&P Reviewed: Yes Patient is NPO: Yes
--- NOTE | 2019-04-06 12:03 | Anesthesia Consultation ---
Anesthesia Consult and Med Hx Date of service: 04/06/19 - Airway Anesthetic Teeth Evaluation: Poor ROM Head & Neck: Adequate Mental/Hyoid Distance: Adequate Mallampati Class: Class II Intubation Access Assessment: Good - Pulmonary Exam CTA: Yes - Cardiac Exam Cardiac Exam: RRR - Pre-Operative Health Status ASA Pre-Surgery Classification: ASA3 Proposed Anesthetic Plan: General - Pulmonary Hx Smoking: No Hx Respiratory Symptoms: No Hx Sleep Apnea: No (JUAN JOSE PRE SCREEN HIGH RISK) - Cardiovascular System Hx Hypertension: Yes Hx Heart Attack/AMI: No (EF 35-40% on most recent TTE) Hx Angina: No Hx Percutaneous Transluminal Coronary Angioplasty (PTCA): No Hx Cardia Arrhythmia: Yes (afib, complete heart block) Hx Pacemaker: Yes - Central Nervous System CVA: No Hx Psychiatric Problems: No - Gastrointestinal Hx Gastroesophageal Reflux Disease: No - Endocrine Hx Renal Disease: No Hx Liver Disease: No Hx Insulin Dependent Diabetes: No Hx Non-Insulin Dependent Diabetes: No Hx Thyroid Disease: No - Hematic Hx Anemia: Yes - Other Systems Hx Cancer: No Hx Obesity: No
[2019-04-06] MEDS ORDERED: MIDAZOLAM 2 MG/2 ML INJ IV NR (13:00)
[2019-04-06] MEDS ORDERED: LACTATED RINGERS 1,000 ML IV SCH (13:00)
--- NOTE | 2019-04-06 13:07 | Consultation ---
HISTORY OF PRESENT ILLNESS: The patient is a 78-year-old gentleman who has been on blood thinners, had a transurethral resection of prostate and suprapubic tube insertion. He presented back to the hospital with gross hematuria, clots. Hemoglobin was 6. He was admitted through the Emergency Room. Urological consultation was obtained. His catheter was removed on Saturday. He has been on Cozaar for blood pressure and he has been on blood thinners, Xarelto. He is also diabetic. REVIEW OF SYSTEMS: Noncontributory except for the hematuria. FAMILY HISTORY: Noncontributory. PAST MEDICAL HISTORY: Diabetes, hypertension, prostatic obstruction, vascular disease. PHYSICAL EXAMINATION: GENERAL: He is awake. He is in no distress. ABDOMEN: Soft, nondistended with suprapubic tube draining bloody urine. He had a CT scan, which showed large blood clot in the distended bladder with obstruction of both UVJ and a TUR defect. He also has significant lymphadenopathy. IMPRESSION: Suspect metastatic disease, Xarelto clot retention, for cystoscopy. JOB# [id number] ZENOBIA/RENE
[2019-04-06] MEDS: carvediloL 6.25 MG TAB PO SCH ×2 (15:22→22:36)
[2019-04-06] MEDS: FERROUS SULFATE 325 MG TAB PO SCH (15:22)
[2019-04-06] MEDS: NIFEdipine XL 30 MG TAB PO SCH (15:23)
[2019-04-06] MEDS: hydroCHLOROthiazide 12.5 MG CAP PO SCH (15:23)
[2019-04-06] MEDS: LOSARTAN 50 MG TAB PO SCH (15:24)
[2019-04-06] MEDS: SODIUM CHLORIDE 0.9% 1000 ML 1,000 ML IV SCH (15:25)
[2019-04-06 15:35] LABS: Hematocrit 26.6 % (35.5-45.6)
--- NOTE | 2019-04-06 15:56 | Progress Note ---
Assessment and Plan Assessment and plan: --Gross hematuria; from suprapubic catheter Urology procedure today Closely monitor H&H --Severe anemia; requiring blood transfusion Mild improvement of H&H, closely monitor H&H Transfuse additional PRBC as needed --Hypertension; moderate control. Continue current antihypertensives and when necessary medications --Dyslipidemia; stable on statin --Severe BPH status post TURP procedure Urology following --Type 2 diabetes mellitus; Accu-Chek sliding scale coverage ADA diet Insulin as needed --Mild malnutrition/hypoalbuminemia Nutrition supplements and supportive care --DVT prophylaxis; SCDs --Full code Monitor closely and adjust the management as needed Plan of care is reviewed with the patient and the daughter at the bedside History Interval history: Patient seen and examined medical records reviewed Admitted with gross hematuria and severe anemia Received blood transfusion with significant improvement of hemoglobin Continues to have hematuria Neurology following, vital signs reviewed Hospitalist Physical - Constitutional Vitals: Temp Pulse Resp BP Pulse Ox 97.3 F L 77 20 143/77 99 04/06/19 15:00 04/06/19 15:24 04/06/19 15:00 04/06/19 15:24 04/06/19 15:00 General appearance: Present: no acute distress, well-nourished, cachectic - EENT Eyes: Present: PERRL, EOM intact - Neck Neck: Present: supple, normal ROM - Respiratory Respiratory effort: normal Respiratory: bilateral: diminished, negative: rales, rhonchi, wheezing - Cardiovascular Rhythm: regular Heart Sounds: Present: S1 & S2 - Extremities Extremities: no ischemia, No edema - Abdominal General gastrointestinal: soft, non-tender, non-distended, normal bowel sounds - Integumentary Integumentary: Present: clear, warm - Psychiatric Psychiatric: appropriate mood/affect, cooperative - Neurologic Neurologic: CNII-XII intact, moves all extremities Results - Labs CBC & Chem 7: 04/06/19 17:52 04/06/19 05:59 Labs: Laboratory Last Values WBC 4.6 K/mm3 (4.5-11.0) 04/06/19 05:59 RBC 3.08 M/mm3 (3.65-5.03) L 04/06/19 05:59 Hgb 9.0 gm/dl (11.8-15.2) L 04/06/19 14:56 Hct 26.6 % (35.5-45.6) L 04/06/19 14:56 MCV 79 fl (84-94) L 04/06/19 05:59 MCH 26 pg (28-32) L 04/06/19 05:59 MCHC 33 % (32-34) 04/06/19 05:59 RDW 23.2 % (13.2-15.2) H 04/06/19 05:59 Plt Count 203 K/mm3 (140-440) 04/06/19 05:59 Lymph % (Auto) 40.5 % (13.4-35.0) H 04/06/19 05:59 [place] % (Auto) 10.7 % (0.0-7.3) H 04/06/19 05:59 Eos % (Auto) 1.1 % (0.0-4.3) 04/06/19 05:59 Baso % (Auto) 0.4 % (0.0-1.8) 04/06/19 05:59 Lymph # 1.9 K/mm3 (1.2-5.4) 04/06/19 05:59 [place] # 0.5 K/mm3 (0.0-0.8) 04/06/19 05:59 Eos # 0.1 K/mm3 (0.0-0.4) 04/06/19 05:59 Baso # 0.0 K/mm3 (0.0-0.1) 04/06/19 05:59 Seg Neutrophils % 47.3 % (40.0-70.0) 04/06/19 05:59 Seg Neutrophils # 2.2 K/mm3 (1.8-7.7) 04/06/19 05:59 PT 12.6 Sec. (12.2-14.9) 04/05/19 13:55 INR 0.95 (0.87-1.13) 04/05/19 13:55 APTT 32.1 Sec. (24.2-36.6) 04/05/19 13:55 Sodium 139 mmol/L (137-145) 04/06/19 05:59 Potassium 3.8 mmol/L (3.6-5.0) 04/06/19 05:59 Chloride 103.8 mmol/L (98-107) 04/06/19 05:59 Carbon Dioxide 22 mmol/L (22-30) 04/06/19 05:59 Anion Gap 17 mmol/L 04/06/19 05:59 BUN 12 mg/dL (9-20) 04/06/19 05:59 Creatinine 0.8 mg/dL (0.8-1.5) 04/06/19 05:59 Estimated GFR > 60 ml/min 04/06/19 05:59 BUN/Creatinine Ratio 15 % 04/06/19 05:59 Glucose 230 mg/dL (75-100) H 04/06/19 05:59 POC Glucose 194 (70-105) H 04/06/19 12:19 Hemoglobin A1c 7.1 % (4-6) H 04/05/19 22:52 Lactic Acid 1.30 mmol/L (0.7-2.0) 04/05/19 15:19 Calcium 8.6 mg/dL (8.4-10.2) 04/06/19 05:59 Total Bilirubin 0.20 mg/dL (0.1-1.2) 04/06/19 05:59 AST 16 units/L (5-40) 04/06/19 05:59 ALT 10 units/L (7-56) 04/06/19 05:59 Alkaline Phosphatase 92 units/L (35-129) 04/06/19 05:59 Total Creatine Kinase 151 units/L (55-170) 04/05/19 13:55 Total Protein 6.4 g/dL (6.3-8.2) 04/06/19 05:59 Albumin 3.2 g/dL (3.9-5) L 04/06/19 05:59 Albumin/Globulin Ratio 1.0 % 04/06/19 05:59 Urine Color Red (Yellow) 04/05/19 19:45 Urine Turbidity Cloudy (Clear) 04/05/19 19:45 Urine pH 6.0 (5.0-7.0) 04/05/19 19:45 Ur Specific [place] 1.035 (1.003-1.030) H 04/05/19 19:45 Urine Protein 100 mg/dl mg/dL (Negative) 04/05/19 19:45 Urine Glucose (UA) 50 mg/dL (Negative) 04/05/19 19:45 Urine Ketones Neg mg/dL (Negative) 04/05/19 19:45 Urine Blood Lg (Negative) 04/05/19 19:45 Urine Nitrite Neg (Negative) 04/05/19 19:45 Urine Bilirubin Neg (Negative) 04/05/19 19:45 Urine Urobilinogen < 2.0 mg/dL (<2.0) 04/05/19 19:45 Ur Leukocyte Esterase Neg (Negative) 04/05/19 19:45 Urine WBC (Auto) < 1.0 /HPF (0.0-6.0) 04/05/19 19:45 Urine RBC (Auto) > 182.0 /HPF (0.0-6.0) 04/05/19 19:45 Blood Type O POSITIVE 04/05/19 15:20 Antibody Screen Negative 04/05/19 15:20 Crossmatch See Detail 04/05/19 15:20 Active Medications - Current Medications Current Medications: Generic Name Dose Route Start Last Admin Trade Name Freq PRN Reason Stop Dose Admin Acetaminophen 650 mg 04/05/19 22:09 Tylenol PO Q4H PRN Pain MILD(1-3)/Fever >100.5/TREJO Atorvastatin Calcium 40 mg 04/06/19 22:00 Lipitor PO QHS AKIRA Carvedilol 6.25 mg 04/05/19 23:00 04/06/19 15:22 Coreg PO 6.25 mg BID AKIRA Administration Famotidine 20 mg 04/05/19 23:00 04/06/19 10:32 Pepcid IV 20 mg BID AKIRA Administration Ferrous Sulfate 325 mg 04/06/19 10:00 04/06/19 15:22 Feosol PO 325 mg DAILY AKIRA Administration Hydrochlorothiazide 12.5 mg 04/06/19 10:00 04/06/19 15:23 Hctz PO 12.5 mg QDAY AKIRA Administration Hydromorphone HCl 0.5 mg 04/05/19 22:09 04/05/19 23:05 Dilaudid IV 0.5 mg Q3H PRN Administration Pain , Severe (7-10) Sodium Chloride 1,000 mls @ 75 mls/hr 04/05/19 23:00 04/06/19 15:25 Nacl 0.9% 1000 Ml IV 75 mls/hr DIRECT AKIRA Administration Sodium Chloride 500 mls @ 0 mls/hr 04/06/19 11:52 04/06/19 13:25 Nacl 0.9% 500 Ml IV 04/07/19 11:51 42 mls/hr ONCE NR Administration As Directed Lactated Ringer's 1,000 mls @ 100 mls/hr 04/06/19 13:00 Lactated Ringers IV DIRECT AKIRA Insulin Human Lispro 0 unit 04/06/19 07:30 04/06/19 07:52 Humalog SUB-Q Not Given ACHS [facility] Protocol Losartan Potassium 50 mg 04/06/19 10:00 04/06/19 15:24 Cozaar PO 50 mg QDAY AKIRA Administration Metformin HCl 850 mg 04/06/19 08:00 04/06/19 07:57 Glucophage PO Not Given BIDDIAB AKIRA Midazolam HCl 2 mg 04/06/19 13:00 Versed IV 04/06/19 23:59 PREOP NR Nifedipine 30 mg 04/06/19 10:00 04/06/19 15:23 Procardia Xl PO 30 mg QDAY AKIRA Administration Ondansetron HCl 4 mg 04/05/19 22:09 Zofran IV Q8H PRN Nausea And Vomiting Oxycodone/Acetaminophen 1 tab 04/05/19 22:09 Percocet 5/325 PO Q6H PRN Pain, Moderate (4-6) Sodium Chloride 10 ml 04/05/19 23:00 04/05/19 23:09 Sodium Chloride Flush Syringe 10 Ml IV 10 ml BID AKIRA Administration Sodium Chloride 10 ml 04/05/19 22:09 Sodium Chloride Flush Syringe 10 Ml IV PRN PRN LINE FLUSH
--- NOTE | 2019-04-06 17:39 | Progress Note ---
Assessment and Plan clots irrigated draining well explained to family was in office all afternoon no OR time still as a vascuklar and appy still to go pt elected to wewait till 7 am [place] working well Subjective Date of service: 04/06/19 Principal diagnosis: clots heme Objective - Constitutional Vitals: Vital Signs - 12hr 04/06/19 04/06/19 04/06/19 07:02 11:01 11:50 Temperature 98.0 F 98.3 F 98.6 F Pulse Rate 82 70 71 Respiratory 18 20 20 Rate Blood Pressure 143/76 148/75 143/80 Blood Pressure [Right] O2 Sat by Pulse 99 99 99 Oximetry 04/06/19 04/06/19 04/06/19 12:10 12:40 13:01 Temperature 98.6 F 98.4 F 99.1 F Pulse Rate 71 73 70 Respiratory 20 20 20 Rate Blood Pressure 143/80 147/74 150/84 Blood Pressure [Right] O2 Sat by Pulse 99 96 100 Oximetry 04/06/19 04/06/19 04/06/19 13:08 13:20 13:31 Temperature 99.2 F 99.3 F 99.3 F Pulse Rate 70 70 70 Respiratory 20 20 20 Rate Blood Pressure 145/73 143/76 145/72 Blood Pressure [Right] O2 Sat by Pulse 100 100 100 Oximetry 04/06/19 04/06/19 04/06/19 13:48 14:05 15:00 Temperature 99.2 F 99.2 F 97.3 F L Pulse Rate 70 70 74 Respiratory 20 20 20 Rate Blood Pressure 149/77 137/74 Blood Pressure 143/77 [Right] O2 Sat by Pulse 100 100 99 Oximetry 04/06/19 04/06/19 15:22 15:24 Temperature Pulse Rate 77 77 Respiratory Rate Blood Pressure 143/77 143/77 Blood Pressure [Right] O2 Sat by Pulse Oximetry General appearance: Present: no acute distress - Respiratory Respiratory effort: normal - Labs CBC & Chem 7: 04/06/19 14:56 04/06/19 05:59 Labs: Abnormal lab results 04/05/19 04/05/19 04/05/19 Range/Units 15:20 19:45 22:52 RBC (3.65-5.03) M/mm3 Hgb (11.8-15.2) gm/dl Hct (35.5-45.6) % MCV (84-94) fl MCH (28-32) pg RDW (13.2-15.2) % Lymph % (Auto) (13.4-35.0) % [place] % (Auto) (0.0-7.3) % Glucose (75-100) mg/dL POC Glucose (70-105) Hemoglobin A1c 7.1 H (4-6) % Albumin (3.9-5) g/dL Ur Specific [place] 1.035 H (1.003-1.030) Crossmatch See Detail 04/05/19 04/06/19 04/06/19 Range/Units 22:52 05:59 05:59 RBC 3.08 L (3.65-5.03) M/mm3 Hgb 8.7 L 8.0 L (11.8-15.2) gm/dl Hct 26.6 L D 24.2 L (35.5-45.6) % MCV 79 L (84-94) fl MCH 26 L (28-32) pg RDW 23.2 H (13.2-15.2) % Lymph % (Auto) 40.5 H (13.4-35.0) % [place] % (Auto) 10.7 H (0.0-7.3) % Glucose 230 H (75-100) mg/dL POC Glucose (70-105) Hemoglobin A1c (4-6) % Albumin 3.2 L (3.9-5) g/dL Ur Specific [place] (1.003-1.030) Crossmatch 04/06/19 04/06/19 04/06/19 Range/Units 07:13 10:35 11:43 RBC (3.65-5.03) M/mm3 Hgb 8.1 L (11.8-15.2) gm/dl Hct 24.7 L (35.5-45.6) % MCV (84-94) fl MCH (28-32) pg RDW (13.2-15.2) % Lymph % (Auto) (13.4-35.0) % [place] % (Auto) (0.0-7.3) % Glucose (75-100) mg/dL POC Glucose 221 H 201 H (70-105) Hemoglobin A1c (4-6) % Albumin (3.9-5) g/dL Ur Specific [place] (1.003-1.030) Crossmatch 04/06/19 04/06/19 04/06/19 Range/Units 12:19 14:56 16:20 RBC (3.65-5.03) M/mm3 Hgb 9.0 L (11.8-15.2) gm/dl Hct 26.6 L (35.5-45.6) % MCV (84-94) fl MCH (28-32) pg RDW (13.2-15.2) % Lymph % (Auto) (13.4-35.0) % [place] % (Auto) (0.0-7.3) % Glucose (75-100) mg/dL POC Glucose 194 H 158 H (70-105) Hemoglobin A1c (4-6) % Albumin (3.9-5) g/dL Ur Specific [place] (1.003-1.030) Crossmatch Medications & Allergies - Medications Allergies/Adverse Reactions: Allergies No Known Allergies Allergy (Verified 03/24/19 14:19) Home Medications: Home Medications Medication Instructions Recorded Confirmed Last Taken Type AtorvaSTATin [Lipitor] 40 mg PO QHS 03/24/19 04/05/19 03/29/19 19:00 History Ferrous Sulfate [Iron 325 MG] 325 mg PO DAILY 03/24/19 04/05/19 03/29/19 19:00 History Losartan [Cozaar] 50 mg PO QDAY 03/24/19 04/05/19 03/30/19 04:00 History NIFEdipine [Nifedipine ER] 30 mg PO DAILY 03/24/19 04/05/19 03/30/19 04:00 History Rivaroxaban [Xarelto] 10 mg PO QDAY 03/24/19 04/05/19 03/23/19 10:00 History Tamsulosin [Flomax] 0.4 mg PO QDAY 03/24/19 04/05/19 03/29/19 19:00 History carvediloL [Coreg] 6.25 mg PO BID 03/24/19 04/05/19 03/30/19 04:00 History hydroCHLOROthiazide [Hctz] 12.5 mg PO QDAY 03/24/19 04/05/19 03/29/19 19:00 History metFORMIN [Glucophage] 850 mg PO BID 03/24/19 04/05/19 03/29/19 19:00 History Active Medications: Generic Name Dose Route Start Last Admin Trade Name Freq PRN Reason Stop Dose Admin Acetaminophen 650 mg 04/05/19 22:09 Tylenol PO Q4H PRN Pain MILD(1-3)/Fever >100.5/TREJO Atorvastatin Calcium 40 mg 04/06/19 22:00 Lipitor PO QHS AKIRA Carvedilol 6.25 mg 04/05/19 23:00 04/06/19 15:22 Coreg PO 6.25 mg BID AKIRA Administration Famotidine 20 mg 04/05/19 23:00 04/06/19 10:32 Pepcid IV 20 mg BID AKIRA Administration Ferrous Sulfate 325 mg 04/06/19 10:00 04/06/19 15:22 Feosol PO 325 mg DAILY AKIRA Administration Hydrochlorothiazide 12.5 mg 04/06/19 10:00 04/06/19 15:23 Hctz PO 12.5 mg QDAY AKIRA Administration Hydromorphone HCl 0.5 mg 04/05/19 22:09 04/05/19 23:05 Dilaudid IV 0.5 mg Q3H PRN Administration Pain , Severe (7-10) Sodium Chloride 1,000 mls @ 75 mls/hr 04/05/19 23:00 04/06/19 15:25 Nacl 0.9% 1000 Ml IV 75 mls/hr DIRECT AKIRA Administration Sodium Chloride 500 mls @ 0 mls/hr 04/06/19 11:52 04/06/19 13:25 Nacl 0.9% 500 Ml IV 04/07/19 11:51 42 mls/hr ONCE NR Administration As Directed Lactated Ringer's 1,000 mls @ 100 mls/hr 04/06/19 13:00 Lactated Ringers IV DIRECT AKIRA Insulin Human Lispro 0 unit 04/06/19 07:30 04/06/19 07:52 Humalog SUB-Q Not Given ACHS [facility] Protocol Losartan Potassium 50 mg 04/06/19 10:00 04/06/19 15:24 Cozaar PO 50 mg QDAY AKIRA Administration Metformin HCl 850 mg 04/06/19 08:00 04/06/19 07:57 Glucophage PO Not Given BIDDIAB AKIRA Midazolam HCl 2 mg 04/06/19 13:00 Versed IV 04/06/19 23:59 PREOP NR Nifedipine 30 mg 04/06/19 10:00 04/06/19 15:23 Procardia Xl PO 30 mg QDAY AKIRA Administration Ondansetron HCl 4 mg 04/05/19 22:09 Zofran IV Q8H PRN Nausea And Vomiting Oxycodone/Acetaminophen 1 tab 04/05/19 22:09 Percocet 5/325 PO Q6H PRN Pain, Moderate (4-6) Sodium Chloride 10 ml 04/05/19 23:00 04/05/19 23:09 Sodium Chloride Flush Syringe 10 Ml IV 10 ml BID AKIRA Administration Sodium Chloride 10 ml 04/05/19 22:09 Sodium Chloride Flush Syringe 10 Ml IV PRN PRN LINE FLUSH
[2019-04-06 18:14] LABS: Basophils % (Auto) 0.6 % (0.0-1.8); Eosinophils # (Auto) 0.1 K/mm3 (0.0-0.4); Eosinophils % (Auto) 1.4 % (0.0-4.3); Hemoglobin 9.4 gm/dl (11.8-15.2); Lymphocytes # (Auto) 1.4 K/mm3 (1.2-5.4); Mean Corpuscular HGB Conc 33 % (32-34); Mean Corpuscular Volume 80 fl (84-94); Monocytes # (Auto) 0.4 K/mm3 (0.0-0.8); Monocytes % (Auto) 10.3 % (0.0-7.3); Platelet Count 204 K/mm3 (140-440); Red Blood Count 3.61 M/mm3 (3.65-5.03)
[2019-04-06] MEDS: HYDROmorphone 1 MG/1 ML INJ IV PRN (22:27)
[2019-04-06] MEDS: ceFAZolin/NS 1 GM/50 ML 1 GM/50 ML BAG IV SCH (22:46)
[2019-04-07] MEDS ORDERED: SODIUM CHLORIDE IRRI 1000 ML 1,000 ML IR ONE (05:52)
[2019-04-07] MEDS: ceFAZolin/NS 1 GM/50 ML 1 GM/50 ML BAG IV SCH ×3 (06:21→21:17)
[2019-04-07] MEDS: SODIUM CHLORIDE 0.9% 1000 ML 1,000 ML IV SCH ×2 (06:21→11:10)
[2019-04-07] MEDS ORDERED: LIDOCAINE MPF (2%) 20 MG/1 ML VIAL 5 ML ONE (06:58)
[2019-04-07] MEDS ORDERED: fentaNYL 100 MCG/2 ML INJ ONE (06:58)
[2019-04-07] MEDS ORDERED: PROPOFOL 200 MG/20 ML VIAL IV ONE (06:58)
[2019-04-07] MEDS: INSULIN LISPRO 100 UNIT/ML SUB-Q SCH ×5 (07:30→20:15)
--- NOTE | 2019-04-07 07:56 | Anesthesia Day of Surgery ---
Anesthesia Day of Surgery - Day of Surgery Patient Examined: Yes Patient H&P Reviewed: Yes Patient is NPO: Yes
[2019-04-07] MEDS ORDERED: SUCCINYLCHOLINE CHLORIDE 200 MG/10 ML INJ MDV ONE (08:19)
[2019-04-07] MEDS ORDERED: ONDANSETRON 4 MG/2 ML INJ ONE (08:20)
--- NOTE | 2019-04-07 08:27 | Post Operative Note ---
Date of procedure: 04/07/19 Pre-op diagnosis: bleeding cap Post-op diagnosis: same Findings: bleeding sites clots Procedure: cysto evac clots tur cystogram Anesthesia: GETA Surgeon: ANDRES FALCON Estimated blood loss: minimal Pathology: list (chips clots) Specimen disposition: to lab Condition: stable Disposition: PACU
[2019-04-07] MEDS ORDERED: PHENYLEPHRINE/NS 1,000 MCG/10 ML SYRINGE (OR USE) IV ONE (08:30)
[2019-04-07] MEDS ORDERED: fentaNYL 100 MCG/2 ML INJ IV PRN (08:30)
--- NOTE | 2019-04-07 08:41 | Operative Report ---
PREOPERATIVE DIAGNOSES: Hematuria, clot retention, extensive prostate cancer with necrosis. POSTOPERATIVE DIAGNOSES: Hematuria, clot retention, extensive prostate cancer with necrosis. PROCEDURE: Cystoscopy, evacuation of clots, fulguration of bleeding sites, resection of necrotic tissue. SURGEON: Dr. Lebron. ANESTHESIA: General. FINDINGS: This is a gentleman. He was in retention. He had a suprapubic tube and resection last week, presented back with gross hematuria. He had taken some Xarelto. He now presents for treatment. DESCRIPTION OF PROCEDURE: The patient was brought to the operating room and placed on the operating table. Following induction of anesthesia, placed in lithotomy position, prepped and draped in usual sterile fashion. There was oozing from the prostatic bed with severe necrosis. There were lots of clots in the bladder. Clots were evacuated out. The suprapubic tube was in the bladder and was functioning once we got the clots out. We did not have to placed it. There was lots of necrotic tissue that was resected right at the bladder neck and the area was cauterized and bleeding sites were cauterized. All the chips were evacuated out. A 26 three-way was inserted with clear Raygoza drip was started, brought to recovery room, minimal blood loss, in stable condition. JOB# [id number] ZENOBIA/RENE
--- NOTE | 2019-04-07 09:23 | Fluoroscopy Report ---
FLUOROSCOPY CYSTOGRAM STATIC HISTORY: Hematuria, complications of TURP. FINDINGS: 28 seconds of fluoroscopy time was provided by radiology during cystogram by the urologist. 6 fluoros copic images are presented demonstrating a small amount of contrast agent within the bladder. Fulgura tion of bleeding sites was performed per the operative notes. There is poor distention of the bladder with mild bladder wall irregularity. No obvious extravasation is appreciated. Please correlate with the procedural report as needed. Signer Name: Donny Romero Jr, MD Signed: 04/07/2019 9:18 AM Workstation Name: [id number]
--- NOTE | 2019-04-07 10:04 | Post Anesthesia Evaluation ---
- Post Anesthesia Evaluation Patient Participated: Yes Airway Patent: Yes Stable Respiratory Function: Yes Nausea/Vomiting: No Temp > 96.8F: Yes Pain Manageable: Yes Adequeate Hydration: Yes Anesthesia Complications: No
[2019-04-07] MEDS ORDERED: MANNITOL/SORBITOL SOLUTION 3,000 ML IRRIG.SOLN IR ONE (10:08)
[2019-04-07] MEDS: NIFEdipine XL 30 MG TAB PO SCH (11:10)
[2019-04-07] MEDS: hydroCHLOROthiazide 12.5 MG CAP PO SCH (11:10)
[2019-04-07] MEDS: carvediloL 6.25 MG TAB PO SCH ×2 (11:11→21:18)
[2019-04-07] MEDS: LOSARTAN 50 MG TAB PO SCH (11:11)
[2019-04-07] MEDS: FAMOTIDINE 20 MG/2 ML INJ IV SCH ×2 (11:11→21:19)
[2019-04-07] MEDS: FERROUS SULFATE 325 MG TAB PO SCH (11:11)
[2019-04-07 11:23] LABS: Basophils % (Auto) 0.5 % (0.0-1.8); Eosinophils # (Auto) 0.1 K/mm3 (0.0-0.4); Eosinophils % (Auto) 1.4 % (0.0-4.3); Hematocrit 33.8 % (35.5-45.6); Hemoglobin 10.9 gm/dl (11.8-15.2); Lymphocytes # (Auto) 1.7 K/mm3 (1.2-5.4); Mean Corpuscular HGB Conc 32 % (32-34); Mean Corpuscular Volume 82 fl (84-94); Monocytes # (Auto) 0.4 K/mm3 (0.0-0.8); Monocytes % (Auto) 8.5 % (0.0-7.3); Platelet Count 216 K/mm3 (140-440); Red Blood Count 4.13 M/mm3 (3.65-5.03)
[2019-04-07 11:28] LABS: Red Cell Distribution Width 22.6 % (13.2-15.2)
[2019-04-07] MEDS ORDERED: HYDROCORTISONE 2.5% RECT CREAM 28.35 GM PR PRN (12:42)
[2019-04-07] MEDS ORDERED: WITCH HAZEL/ GLYCERIN PAD TP PRN (12:43)
[2019-04-07] MEDS ORDERED: MAGNESIUM HYDROXIDE (MOM) ORAL LIQD UDC PO ONE (12:55)
[2019-04-07] MEDS ORDERED: MAGNESIUM HYDROXIDE (MOM) ORAL LIQD UDC PO PRN (12:56)
--- NOTE | 2019-04-07 13:00 | Progress Note ---
Assessment and Plan Assessment and plan: --Gross hematuria; from suprapubic catheter s/p cystoscopy/cystogram Bladder irrigation, clear urine --Severe anemia; requiring blood transfusion Mild improvement of H&H, closely monitor H&H Transfuse additional PRBC as needed --Hypertension; moderate control. Continue current antihypertensives and when necessary medications --Dyslipidemia; stable on statin --Severe BPH status post TURP procedure Urology following --Type 2 diabetes mellitus; Accu-Chek sliding scale coverage ADA diet Insulin as needed --Mild malnutrition/hypoalbuminemia Nutrition supplements and supportive care --DVT prophylaxis; SCDs --Full code Monitor closely and adjust the management as needed Plan of care is reviewed with the patient and the daughter at the bedside History Interval history: Patient seen and examined medical records reviewed Patient feels better after urology procedure today No new episodes of bleeding Bladder irrigation in place Findings noted Hospitalist Physical - Constitutional Vitals: Temp Pulse Resp BP Pulse Ox 97.3 F L 71 20 150/73 98 04/07/19 10:13 04/07/19 11:11 04/07/19 10:13 04/07/19 11:11 04/07/19 10:13 General appearance: Present: no acute distress, well-nourished, cachectic - EENT Eyes: Present: PERRL, EOM intact - Neck Neck: Present: supple, normal ROM - Respiratory Respiratory effort: normal Respiratory: bilateral: diminished, negative: rales, rhonchi, wheezing - Cardiovascular Rhythm: regular Heart Sounds: Present: S1 & S2 - Extremities Extremities: no ischemia, No edema - Abdominal General gastrointestinal: soft, non-tender, non-distended, normal bowel sounds - Integumentary Integumentary: Present: clear, warm - Psychiatric Psychiatric: appropriate mood/affect, cooperative - Neurologic Neurologic: CNII-XII intact, moves all extremities Results - Labs CBC & Chem 7: 04/07/19 10:41 04/06/19 05:59 Labs: Laboratory Last Values WBC 5.1 K/mm3 (4.5-11.0) 04/07/19 10:41 RBC 4.13 M/mm3 (3.65-5.03) 04/07/19 10:41 Hgb 10.9 gm/dl (11.8-15.2) L 04/07/19 10:41 Hct 33.8 % (35.5-45.6) L 04/07/19 10:41 MCV 82 fl (84-94) L 04/07/19 10:41 MCH 27 pg (28-32) L 04/07/19 10:41 MCHC 32 % (32-34) 04/07/19 10:41 RDW 22.6 % (13.2-15.2) H 04/07/19 10:41 Plt Count 216 K/mm3 (140-440) 04/07/19 10:41 Lymph % (Auto) 33.0 % (13.4-35.0) 04/07/19 10:41 [place] % (Auto) 8.5 % (0.0-7.3) H 04/07/19 10:41 Eos % (Auto) 1.4 % (0.0-4.3) 04/07/19 10:41 Baso % (Auto) 0.5 % (0.0-1.8) 04/07/19 10:41 Lymph # 1.7 K/mm3 (1.2-5.4) 04/07/19 10:41 [place] # 0.4 K/mm3 (0.0-0.8) 04/07/19 10:41 Eos # 0.1 K/mm3 (0.0-0.4) 04/07/19 10:41 Baso # 0.0 K/mm3 (0.0-0.1) 04/07/19 10:41 Seg Neutrophils % 56.6 % (40.0-70.0) 04/07/19 10:41 Seg Neutrophils # 2.9 K/mm3 (1.8-7.7) 04/07/19 10:41 PT 12.6 Sec. (12.2-14.9) 04/05/19 13:55 INR 0.95 (0.87-1.13) 04/05/19 13:55 APTT 32.1 Sec. (24.2-36.6) 04/05/19 13:55 Sodium 139 mmol/L (137-145) 04/06/19 05:59 Potassium 3.8 mmol/L (3.6-5.0) 04/06/19 05:59 Chloride 103.8 mmol/L (98-107) 04/06/19 05:59 Carbon Dioxide 22 mmol/L (22-30) 04/06/19 05:59 Anion Gap 17 mmol/L 04/06/19 05:59 BUN 12 mg/dL (9-20) 04/06/19 05:59 Creatinine 0.8 mg/dL (0.8-1.5) 04/06/19 05:59 Estimated GFR > 60 ml/min 04/06/19 05:59 BUN/Creatinine Ratio 15 % 04/06/19 05:59 Glucose 230 mg/dL (75-100) H 04/06/19 05:59 POC Glucose 195 (70-105) H 04/07/19 11:31 Hemoglobin A1c 7.1 % (4-6) H 04/05/19 22:52 Lactic Acid 1.30 mmol/L (0.7-2.0) 04/05/19 15:19 Calcium 8.6 mg/dL (8.4-10.2) 04/06/19 05:59 Total Bilirubin 0.20 mg/dL (0.1-1.2) 04/06/19 05:59 AST 16 units/L (5-40) 04/06/19 05:59 ALT 10 units/L (7-56) 04/06/19 05:59 Alkaline Phosphatase 92 units/L (35-129) 04/06/19 05:59 Total Creatine Kinase 151 units/L (55-170) 04/05/19 13:55 Total Protein 6.4 g/dL (6.3-8.2) 04/06/19 05:59 Albumin 3.2 g/dL (3.9-5) L 04/06/19 05:59 Albumin/Globulin Ratio 1.0 % 04/06/19 05:59 Urine Color Red (Yellow) 04/05/19 19:45 Urine Turbidity Cloudy (Clear) 04/05/19 19:45 Urine pH 6.0 (5.0-7.0) 04/05/19 19:45 Ur Specific [place] 1.035 (1.003-1.030) H 04/05/19 19:45 Urine Protein 100 mg/dl mg/dL (Negative) 04/05/19 19:45 Urine Glucose (UA) 50 mg/dL (Negative) 04/05/19 19:45 Urine Ketones Neg mg/dL (Negative) 04/05/19 19:45 Urine Blood Lg (Negative) 04/05/19 19:45 Urine Nitrite Neg (Negative) 04/05/19 19:45 Urine Bilirubin Neg (Negative) 04/05/19 19:45 Urine Urobilinogen < 2.0 mg/dL (<2.0) 04/05/19 19:45 Ur Leukocyte Esterase Neg (Negative) 04/05/19 19:45 Urine WBC (Auto) < 1.0 /HPF (0.0-6.0) 04/05/19 19:45 Urine RBC (Auto) > 182.0 /HPF (0.0-6.0) 04/05/19 19:45 Blood Type O POSITIVE 04/05/19 15:20 Antibody Screen Negative 04/05/19 15:20 Crossmatch See Detail 04/05/19 15:20 Active Medications - Current Medications Current Medications: Generic Name Dose Route Start Last Admin Trade Name Freq PRN Reason Stop Dose Admin Acetaminophen 650 mg 04/05/19 22:09 Tylenol PO Q4H PRN Pain MILD(1-3)/Fever >100.5/TREJO Atorvastatin Calcium 40 mg 04/06/19 22:00 04/06/19 22:37 Lipitor PO 40 mg QHS AKIRA Administration Carvedilol 6.25 mg 04/05/19 23:00 04/07/19 11:11 Coreg PO 6.25 mg BID AKIRA Administration Famotidine 20 mg 04/05/19 23:00 04/07/19 11:11 Pepcid IV 20 mg BID AKIRA Administration Fentanyl 50 mcg 04/07/19 08:30 Sublimaze IV 04/07/19 17:00 Q5MIN PRN Pain , Severe (7-10) Ferrous Sulfate 325 mg 04/06/19 10:00 04/07/19 11:11 Feosol PO 325 mg DAILY AKIRA Administration Hydrochlorothiazide 12.5 mg 04/06/19 10:00 04/07/19 11:10 Hctz PO 12.5 mg QDAY AKIRA Administration Hydrocortisone Acetate 1 applic 04/07/19 12:42 Proctosol-Hc [place] Q8H PRN Hemorrhoids Hydromorphone HCl 0.5 mg 04/05/19 22:09 04/06/19 22:27 Dilaudid IV 0.5 mg Q3H PRN Administration Pain , Severe (7-10) Sodium Chloride 1,000 mls @ 75 mls/hr 04/05/19 23:00 04/07/19 11:10 Nacl 0.9% 1000 Ml IV 75 mls/hr DIRECT AKIRA Administration Lactated Ringer's 1,000 mls @ 100 mls/hr 04/06/19 13:00 Lactated Ringers IV DIRECT AKIRA Cefazolin Sodium 1 gm in 50 mls @ 100 mls/hr 04/06/19 22:00 04/07/19 06:21 Ancef/Ns 1 Gm/50 Ml IV 100 mls/hr Q8HR AKIRA Administration Insulin Human Lispro 0 unit 04/06/19 07:30 04/06/19 23:03 Humalog SUB-Q 3 unit ACHS AKIRA Administration Protocol Losartan Potassium 50 mg 04/06/19 10:00 04/07/19 11:11 Cozaar PO 50 mg QDAY AKIRA Administration Magnesium Hydroxide 30 ml 04/07/19 12:55 Milk Of Magnesia PO 04/07/19 12:56 ONCE ONE Magnesium Hydroxide 30 ml 04/07/19 12:56 Milk Of Magnesia PO QDAY PRN Constipation Metformin HCl 850 mg 04/06/19 08:00 04/06/19 07:57 Glucophage PO Not Given BIDDIAB AKIRA Nifedipine 30 mg 04/06/19 10:00 04/07/19 11:10 Procardia Xl PO 30 mg QDAY AKIRA Administration Ondansetron HCl 4 mg 04/05/19 22:09 Zofran IV Q8H PRN Nausea And Vomiting Oxycodone/Acetaminophen 1 tab 04/05/19 22:09 Percocet 5/325 PO Q6H PRN Pain, Moderate (4-6) Sodium Chloride 10 ml 04/05/19 23:00 04/06/19 22:41 Sodium Chloride Flush Syringe 10 Ml IV 10 ml BID AKIRA Administration Sodium Chloride 10 ml 04/05/19 22:09 Sodium Chloride Flush Syringe 10 Ml IV PRN PRN LINE FLUSH Sodium Chloride 2,000 ml 04/07/19 09:00 Nacl 0.9% IR DIRECT AKIRA Witch Luz [place]/Glycerin 1 each 04/07/19 12:43 Tucks Pad TP PRN PRN Hemorrhoids
[2019-04-07] MEDS: metFORMIN 850 MG TAB PO SCH ×3 (13:11→20:12)
[2019-04-07] MEDS ORDERED: STERILE WATER FOR INJ IV ONE (14:05)
[2019-04-08] MEDS: INSULIN LISPRO 100 UNIT/ML SUB-Q SCH ×3 (00:35→12:21)
[2019-04-08] MEDS: HYDROmorphone 1 MG/1 ML INJ IV PRN (02:50)
[2019-04-08] MEDS: SODIUM CHLORIDE 0.9% IRRIG SOLN 2000 ML IR SCH ×2 (03:00→05:04)
[2019-04-08] MEDS: ceFAZolin/NS 1 GM/50 ML 1 GM/50 ML BAG IV SCH (05:03)
[2019-04-08 06:23] LABS: Basophils % (Auto) 0.2 % (0.0-1.8); Eosinophils # (Auto) 0.1 K/mm3 (0.0-0.4); Eosinophils % (Auto) 2.2 % (0.0-4.3); Hematocrit 30.5 % (35.5-45.6); Hemoglobin 10.1 gm/dl (11.8-15.2); Lymphocytes # (Auto) 1.7 K/mm3 (1.2-5.4); Lymphocytes % (Auto) 29.1 % (13.4-35.0); Mean Corpuscular HGB Conc 33 % (32-34); Mean Corpuscular Volume 81 fl (84-94); Monocytes # (Auto) 0.5 K/mm3 (0.0-0.8); Monocytes % (Auto) 8.6 % (0.0-7.3); Platelet Count 204 K/mm3 (140-440); Red Blood Count 3.76 M/mm3 (3.65-5.03)
[2019-04-08 06:38] LABS: Red Cell Distribution Width 22.7 % (13.2-15.2)
[2019-04-08 06:46] LABS: BUN/Creatinine Ratio 10; Blood Urea Nitrogen 7 mg/dL (9-20); Calcium 8.8 mg/dL (8.4-10.2); Hemolysis Index 1
[2019-04-08] MEDS: metFORMIN 850 MG TAB PO SCH (07:47)
[2019-04-08] MEDS: FERROUS SULFATE 325 MG TAB PO SCH (09:31)
[2019-04-08] MEDS: NIFEdipine XL 30 MG TAB PO SCH (09:31)
[2019-04-08] MEDS: FAMOTIDINE 20 MG/2 ML INJ IV SCH (09:32)
[2019-04-08] MEDS: LOSARTAN 50 MG TAB PO SCH (09:32)
[2019-04-08] MEDS: hydroCHLOROthiazide 12.5 MG CAP PO SCH (09:32)
[2019-04-08] MEDS: carvediloL 6.25 MG TAB PO SCH (09:32)
--- NOTE | 2019-04-08 15:08 | Discharge Summary ---
Providers - Providers Date of Admission: 04/05/19 16:34 Date of discharge: 04/08/19 Attending physician: RE RUSSELL 04/05/19 22:09 Consult to Physician [CONS] Routine Comment: Consulting Provider: SANDI NGUYEN Physician Instructions: Reason For Exam: hematuria Primary care physician: PCI SECURITY CONSULTANT Hospitalization Reason for admission: Bleeding from the suprapubic catheter/acute blood loss anemia Condition: Stable Pertinent studies: CT Abdomen and pelvis Hospital course: 78-year-old male patient with significant past medical history of recent TURP procedure and suprapubic catheter placement by urologist was admitted with history of bleeding from the suprapubic catheter, initial evaluations consistent with acute blood loss anemia with hemoglobin of 6.3 received 2 units of PRBC with significant improvement Urology has evaluated the patient consultation , patient underwent cystoscopy evacuation of clots and fulguration of bleeding sites resection of necrotic tissue . Patient's symptoms significantly improved, Today patient is comfortable in no new complaints vital signs stable physical examination unremarkable Clear by neurology for discharge and follow-up as outpatient The patient is hemodynamically and clinically stable at discharge Discharge diagnoses: --Gross hematuria; from suprapubic catheter s/p cystoscopy/cystogram Bladder irrigation, clear urine --Severe anemia; requiring blood transfusion Mild improvement of H&H, closely monitor H&H Transfuse additional PRBC as needed --Hypertension; moderate control. Continue current antihypertensives and when necessary medications --Dyslipidemia; stable on statin --Severe BPH status post TURP procedure Urology following --Type 2 diabetes mellitus; Accu-Chek sliding scale coverage ADA diet Insulin as needed --Mild malnutrition/hypoalbuminemia Nutrition supplements and supportive care --DVT prophylaxis; SCDs --Full code Cleared by urology for discharge Patient is Clinically stable Disposition: DC-01 TO HOME OR SELFCARE Time spent for discharge: 32 min Core Measure Documentation - Palliative Care Palliative Care/ Comfort Measures: Not Applicable - Core Measures Any of the following diagnoses?: none Exam - Constitutional Vitals: Temp Pulse Resp BP Pulse Ox 98.5 F 77 18 143/74 98 04/08/19 07:46 04/08/19 07:46 04/08/19 07:46 04/08/19 07:46 04/08/19 07:46 General appearance: Present: no acute distress, well-nourished - EENT Eyes: Present: PERRL, EOM intact - Neck Neck: Present: supple, normal ROM - Respiratory Respiratory effort: normal Respiratory: negative: rales, rhonchi, wheezing - Cardiovascular Rhythm: regular Heart Sounds: Present: S1 & S2 - Extremities Extremities: no ischemia, No edema - Abdominal General gastrointestinal: Present: soft, non-tender, non-distended, normal bowel sounds - Integumentary Integumentary: Present: clear, warm - Musculoskeletal Musculoskeletal: strength equal bilaterally - Psychiatric Psychiatric: appropriate mood/affect, cooperative - Neurologic Neurologic: moves all extremities Plan Activity: advance as tolerated Diet: diabetic Additional Instructions: Follow-up instruction per urology. Do not remove the [place] catheter, check with urologist for instructions Follow up with: PRIMARY CAREMD [Primary Care Provider] - 7 Days SANDI NGUYEN MD [Staff Physician] - 04/14/19 Prescriptions: cefUROXime [Ceftin] 500 mg PO Q12H 7 Days #14 tablet oxyCODONE /ACETAMINOPHEN [Percocet 5/325 mg] 1 tab PO BID PRN #12 tablet PRN Reason: Pain, Moderate (4-6) Hydrocortisone 2.5% [Proctosol-Hc] 1 applic TN Q8H PRN #1 tube PRN Reason: Hemorrhoids Glycerin/Witch Luz Marina Pad [Tucks Pad] 1 each TP PRN PRN #1 box PRN Reason: Hemorrhoids
[2019-04-08 16:24] VITALS: BP 111/59
== END 2019-04-08 18:07 | disposition home or self-care (01) | DRG 669 ==
LOC: ED 12:36 → 3B-SURG 16:34
PROVIDERS: ADMIT Internal Medicine; ATTEND Internal Medicine
PROC: 30233N1 Transfusion of Nonautologous Red Blood Cells into Peripheral Vein, Percutaneous Approach (ICD-10-PCS; 2019-04-05)
PROC: 0TCB8ZZ Extirpation of Matter from Bladder, Via Natural or Artificial Opening Endoscopic (ICD-10-PCS; principal; 2019-04-07)
PROC: 0T5B8ZZ Destruction of Bladder, Via Natural or Artificial Opening Endoscopic (ICD-10-PCS; 2019-04-07)
PROC: BT101ZZ Fluoroscopy of Bladder using Low Osmolar Contrast (ICD-10-PCS; 2019-04-07)
DX: T83.83XA Hemorrhage due to genitourinary prosthetic devices, implants and grafts, initial encounter (principal); N13.30 Unspecified hydronephrosis; E44.1 Mild protein-calorie malnutrition; C61 Malignant neoplasm of prostate; N32.89 Other specified disorders of bladder; I11.0 Hypertensive heart disease with heart failure; I50.9 Heart failure, unspecified; E11.9 Type 2 diabetes mellitus without complications; I48.91 Unspecified atrial fibrillation; R31.0 Gross hematuria; E78.5 Hyperlipidemia, unspecified; Y83.8 Other surgical procedures as the cause of abnormal reaction of the patient, or of later complication, without mention of misadventure at the time of the procedure; Y92.89 Other specified places as the place of occurrence of the external cause; Z95.0 Presence of cardiac pacemaker; Z68.22 Body mass index [BMI] 22.0-22.9, adult; Z79.84 Long term (current) use of oral hypoglycemic drugs
CPT/HCPCS: 36415; 36430; 74177; 74430; 80048; 80053; 81001; 82140; 82550; 82962; 83036; 85014; 85018; 85025; 85610; 85730; 86850; 86900; 86901; 86920; 88305; 88341; 88342; G0378; A4217; A9270-GY; J0330; J0690; J1170; J1815; J2270; J2370; J2405; J2704; J3010; J7030; J7040; J7120; P9016; Q9967